=== PATIENT | female | born 1970 | race Caucasian/White ===

== ENCOUNTER 2016-09-26 19:10 | Emergency (ER) | payer OTHER | END 2016-09-26 21:29 | disposition left against medical advice (07) | LOC: UCCORT 19:10 | DX: H92.09 Otalgia, unspecified ear (principal); Z53.21 Procedure and treatment not carried out due to patient leaving prior to being seen by health care provider ==

== ENCOUNTER 2016-10-27 11:53 | Emergency (ER) | payer BC, OTHER ==
[2016-10-27 12:05] VITALS: BP 117/65
[2016-10-27] MEDS ORDERED: Levalbuterol 1.25MG/0.5ML NEB INH ONE (12:32)
--- NOTE | 2016-10-27 12:33 | UC ---
Respiratory Complaint HPI - HPI Summary HPI Summary: pat is asthmatic, having difficulty breathing last time she nebulized albuterol she went into SVT. is here to get a nebulization treatment while being monitored. - History of Current Complaint Chief Complaint: UCGeneralIllness Stated Complaint: ASTHMA-COUGH Time Seen by Provider: 10/27/16 12:26 Hx Obtained From: Patient Hx Last Menstrual Period: 10/23/16 ?: No Onset/Duration: Sudden Onset, Lasting Days Timing: Constant Severity Initially: Mild Severity Currently: Mild Pain Intensity: 3 Character: Cough: Nonproductive Aggravating Factors: Exertion, Deep Breaths, Recumbent Position Alleviating Factors: Bronchodilator Associated Signs And Symptoms: Positive: Negative - Risk Factors Pulmonary Embolism Risk Factors: Negative - Allergies/Home Medications Allergies/Adverse Reactions: Allergies Allergy/AdvReac Type Severity Reaction Status Date / Time Latex Allergy Burning Verified 05/27/16 10:57 Sensation Home Medications: Home Medications Citalopram TAB* [CeleXA TAB*] 20 mg PO DAILY 10/27/16 [History Confirmed ] PMH/Surg Hx/FS Hx/Imm Hx Previously Healthy: Yes Cardiovascular History Of: Reports: Cardiac Disorders - SVT in 08/2016 Respiratory History Of: Reports: Asthma - Surgical History Surgical History: Yes Surgery Procedure, Year, and Place: Tubal Ligation, 1995, [place] - Tonsillectomy, - Family History Known Family History: Positive: Cardiac Disease, Respiratory Disease - Social History Alcohol Use: None Substance Use Type: None Smoking Status (MU): Smoker, Current Status Unknown Type: Cigarettes Amount Used/How Often: 1/2-1 PPD Length of Time of Smoking/Using Tobacco: 32 Years Have You Smoked in the Last Year: Yes When Did the Patient Quit Smoking/Using Tobacco: February 2014 Household Exposure Type: Cigarettes - Immunization History Most Recent Influenza Vaccination: no Review of Systems Constitutional: Negative Skin: Negative Eyes: Negative ENT: Negative Respiratory: Shortness Of Breath, Cough Cardiovascular: Negative Gastrointestinal: Negative Genitourinary: Negative Motor: Negative Neurovascular: Negative Musculoskeletal: Negative Neurological: Negative Psychological: Negative All Other Systems Reviewed And Are Negative: Yes Physical Exam Triage Information Reviewed: Yes Appearance: Well-Appearing, Well-Nourished, Ill-Appearing Vital Signs: Initial Vital Signs Temp 97.6 F 10/27/16 11:56 Pulse 90 10/27/16 11:56 Resp 16 10/27/16 11:56 BP 117/65 10/27/16 11:56 Pulse Ox 100 10/27/16 11:56 Vital Signs Reviewed: Yes Eye Exam: Normal Eyes: Positive: Conjunctiva Clear ENT Exam: Normal ENT: Positive: Normal ENT inspection, Hearing grossly normal, Pharynx normal, TMs normal Dental Exam: Normal Neck exam: Normal Neck: Positive: Supple, Nontender, No Lymphadenopathy Respiratory Exam: Normal Respiratory: Positive: Chest non-tender, Normal breath sounds, No respiratory distress, Rhonchi, Wheezing, Inspiration Cardiovascular Exam: Normal Cardiovascular: Positive: RRR, No Murmur, Pulses Normal Abdominal Exam: Normal Abdomen Description: Positive: Nontender, No Organomegaly, Soft Bowel Sounds: Positive: Present Musculoskeletal Exam: Normal Musculoskeletal: Positive: Strength Intact, ROM Intact, No Edema Neurological Exam: Normal Neurological: Positive: Alert, Muscle Tone Normal Psychological Exam: Normal Skin Exam: Normal UC Diagnostic Evaluation - Laboratory O2 Sat by Pulse Oximetry: 100 Respiratory Course/Dx - Course Course Of Treatment: hx obtained, exam performed, nebulatiztion treament given with Xopenex, good results. prednisone prescribed. - Differential Dx/Diagnosis Differential Diagnosis/HQI/PQRI: Asthma, Bronchitis, Laryngitis Provider Diagnoses: asthma exacerbation. wheezing Discharge - Discharge Plan Condition: Stable Disposition: HOME Prescriptions: predniSONE TAB* [Deltasone TAB*] 40 mg PO DAILY #10 tab Patient Education Materials: Asthma (ED) Additional Instructions: continue with your current medications, talk to your PCP about the albuterol, there are alternative with less Cardiac effect, such as Xopenex. Take the prednisone daily for 5 days.
[2016-10-27] MEDS ORDERED: Levalbuterol 0.63MG/3ML NEB ONE (12:48)
[2016-10-27] MEDS ORDERED: Levalbuterol 0.63MG/3ML NEB INH ONE (12:49)
== END 2016-10-27 13:24 | disposition home or self-care (01) ==
LOC: UCCORT 11:53
DX: J45.901 Unspecified asthma with (acute) exacerbation (principal); I47.1 Supraventricular tachycardia; Z87.891 Personal history of nicotine dependence; Z77.22 Contact with and (suspected) exposure to environmental tobacco smoke (acute) (chronic); Z91.040 Latex allergy status
CPT/HCPCS: 99212; A9270-GY; G0463

== ENCOUNTER 2016-12-21 20:19 | Emergency (ER) | payer BC ==
[2016-12-21 20:30] VITALS: BP 116/63
--- NOTE | 2016-12-21 20:43 | UC ---
FLU HPI - HPI Summary HPI Summary: 3 day history of sinus pain, malaise and increasing cough. No fever. Smoker with hx of asthma, takes symbicort. Not using albuterol at present as she avoids it. Feels some shortness of breath. Exposed to flu 2 to 3 days ago and is concerned about infection. Has been on prednisone for the past month due to a flare up of lupus. - History of Current Complaint Chief Complaint: UCRespiratory Stated Complaint: SINUS/ REQUEST FLU TEST Time Seen by Provider: 12/21/16 20:30 Hx Obtained From: Patient Hx Last Menstrual Period: 12/15/16 ?: No Onset/Duration: Gradual Onset, Lasting Days - 3 Severity Currently: Mild Severity Initially: Moderate Associated Signs & Symptoms: Positive: Myalgia, Nasal Congestion - Risk Factors Influenza Risk Factors: Chronic Medical or Immunosuppresive Condition - Allergy/Home Medications Allergies/Adverse Reactions: Allergies Allergy/AdvReac Type Severity Reaction Status Date / Time Latex Allergy Burning Verified 12/21/16 20:30 Sensation Home Medications: Home Medications predniSONE TAB* [Deltasone TAB*] 5 mg PO DAILY 12/21/16 [History Confirmed 12/21] PMH/Surg Hx/FS Hx/Imm Hx - Additional Past Medical History Additional PMH: lupus with recent flare up. 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 Lives: With Family Alcohol Use: Occasionally Substance Use Type: None Smoking Status (MU): Heavy Every Day Tobacco Smoker Type: Cigarettes Amount Used/How Often: 1/2-1 PPD Length of Time of Smoking/Using Tobacco: 32 Years Have You Smoked in the Last Year: Yes When Did the Patient Quit Smoking/Using Tobacco: February 2014 Household Exposure Type: Cigarettes - Immunization History Most Recent Influenza Vaccination: no Review of Systems Constitutional: Fatigue Skin: Negative Eyes: Negative ENT: Sore Throat Respiratory: Shortness Of Breath, Cough Cardiovascular: Palpitations - has had some heart palpitations today. Gastrointestinal: Negative Genitourinary: Negative Motor: Negative Neurovascular: Negative Musculoskeletal: Arthralgia - knees Neurological: Weakness Psychological: Negative All Other Systems Reviewed And Are Negative: Yes Physical Exam Triage Information Reviewed: Yes Appearance: Ill-Appearing - mildly unwell Vital Signs: Initial Vital Signs Temp 98.6 F 12/21/16 20:26 Pulse 86 12/21/16 20:26 Resp 16 12/21/16 20:26 BP 116/63 12/21/16 20:26 Pulse Ox 100 12/21/16 20:26 Vital Signs Reviewed: Yes Eyes: Positive: Conjunctiva Clear ENT: Positive: Pharyngeal erythema, TMs normal Neck exam: Normal Neck: Positive: Supple, Nontender, No Lymphadenopathy Respiratory: Positive: No respiratory distress, Wheezing - throughout upper lung [place]. Cardiovascular: Positive: RRR, No Murmur Abdomen Description: Positive: Nontender, No Organomegaly Musculoskeletal Exam: Normal Neurological: Positive: Alert, Muscle Tone Normal Psychological Exam: Normal Skin Exam: Normal Diagnostics - Laboratory Diagnostic Studies Completed/Ordered: rapid flu negative. Flu Course/Dx - Course Course Of Treatment: augmentin for acute sinusitis. - Differential Dx/Diagnosis Differential Diagnosis/HQI/PQRI: Influenza, Upper Respiratory Infection, Other - sinusitis Provider Diagnoses: acute sinusitis; asthma exacerbation Discharge - Discharge Plan Condition: Stable Disposition: HOME Prescriptions: Albuterol HFA INHALER* [Ventolin HFA Inhaler*] 2 puff INH Q6H PRN #1 mdi PRN Reason: Wheezing Amoxicillin/Clavulanate TAB* [Augmentin TAB 875*] 875 mg PO BID #20 tab Patient Education Materials: Sinusitis (ED), Asthma (ED) Additional Instructions: Continue use of symbicort and use albuterol as needed. Begin augmentin for treatment of sinusitis. Flu test was negative, but if you develop fever and more typical flu like symptoms, you can come for a reassessment.
[2016-12-21] MEDS ORDERED: Amoxicillin/Clavulanate TAB* 875 MG PO ONE (20:57)
== END 2016-12-21 21:10 | disposition home or self-care (01) ==
LOC: UCCORT 20:19
DX: J01.90 Acute sinusitis, unspecified (principal); J45.901 Unspecified asthma with (acute) exacerbation; Z87.891 Personal history of nicotine dependence
CPT/HCPCS: 87502; 99212; A9270-GY; G0463

== ENCOUNTER 2017-08-09 14:05 | Emergency (ER) | payer BC ==
[2017-08-09 14:14] VITALS: BP 113/68
[2017-08-09] MEDS ORDERED: Albuterol/Ipratropium NEB.SOL* Albuterol 2.5 MG/Ipratropium 0.5 MG 3 ML INH ONE (14:25)
--- NOTE | 2017-08-09 14:25 | UC ---
Throat Pain/Nasal Kyler HPI - HPI Summary HPI Summary: uri and sinus complaints with continued chest congestion/cough---is 7 days with out smoking has been on antibiotics for 3 days - History of Current Complaint Chief Complaint: UCGeneralIllness Stated Complaint: FLU SYMPTOMS Time Seen by Provider: 08/09/17 14:09 Hx Obtained From: Patient Hx Last Menstrual Period: 08/07/17 ?: No Onset/Duration: Sudden Onset, Lasting Days - 6, Still Present Severity: Mild Pain Intensity: 3 Pain Scale Used: 0-10 Numeric Cough: Nonproductive Associated Signs & Symptoms: Positive: Negative Related History: Smoking - Allergies/Home Medications Allergies/Adverse Reactions: Allergies Allergy/AdvReac Type Severity Reaction Status Date / Time Latex Allergy Burning Verified 08/09/17 14:14 Sensation Home Medications: Home Medications Methotrexate TAB* 2.5 mg PO Q7D 08/09/17 [History Confirmed 08/09/17] Spiriva Inhaler DEVICE* [Tiotropium Inhaler DEVICE*] 2 inh BID 08/09/17 [ History Confirmed 08/09/17] PMH/Surg Hx/FS Hx/Imm Hx Previously Healthy: No - Lupus Respiratory History: COPD - Surgical History Surgical History: Yes Surgery Procedure, Year, and Place: Tubal Ligation, 1995, [place] - Tonsillectomy, s - Family History Known Family History: Positive: Cardiac Disease, Respiratory Disease - Social History Occupation: Employed Full-time Lives: With Family Alcohol Use: Occasionally Substance Use Type: None Smoking Status (MU): Heavy Every Day Tobacco Smoker Type: Cigarettes Amount Used/How Often: 1/2-1 PPD Length of Time of Smoking/Using Tobacco: 32 Years Have You Smoked in the Last Year: Yes When Did the Patient Quit Smoking/Using Tobacco: 07/2017 Household Exposure Type: Cigarettes - Immunization History Most Recent Influenza Vaccination: no Review of Systems Constitutional: Chills, Fatigue Skin: Negative Eyes: Negative ENT: Nasal Discharge, Sinus Congestion Respiratory: Cough Cardiovascular: Negative Gastrointestinal: Negative Genitourinary: Negative Motor: Negative Neurovascular: Negative Musculoskeletal: Negative Neurological: Negative Psychological: Negative Is Patient Immunocompromised?: No All Other Systems Reviewed And Are Negative: Yes Physical Exam Triage Information Reviewed: Yes Appearance: Well-Appearing, No Pain Distress, Well-Nourished Vital Signs: Initial Vital Signs Temp 97.9 F 08/09/17 14:08 Pulse 84 08/09/17 14:08 Resp 16 08/09/17 14:08 BP 113/68 08/09/17 14:08 Pulse Ox 98 08/09/17 14:08 Vital Signs Reviewed: Yes Eye Exam: Normal Eyes: Positive: Conjunctiva Clear ENT Exam: Normal ENT: Positive: Normal ENT inspection, Hearing grossly normal, Pharynx normal, Nasal congestion, TMs normal, Sinus tenderness, Uvula midline. Negative: Tonsillar swelling, Tonsillar exudate, Trismus, Muffled voice Dental Exam: Normal Neck exam: Normal Neck: Positive: Supple, Nontender, No Lymphadenopathy Respiratory Exam: Normal Respiratory: Positive: Chest non-tender, Lungs clear, Normal breath sounds, No respiratory distress, No accessory muscle use Cardiovascular Exam: Normal Cardiovascular: Positive: RRR, No Murmur, Pulses Normal, Brisk Capillary Refill Musculoskeletal Exam: Normal Musculoskeletal: Positive: Strength Intact, ROM Intact, No Edema Neurological Exam: Normal Neurological: Positive: Alert, Muscle Tone Normal Psychological Exam: Normal Skin Exam: Normal Diagnostics - Radiology No standard instances Xray Interpretation: No Acute Changes Radiology Interpretation Completed By: ED Physician, Radiologist Throat Pain/Nasal Course/Dx - Course Assessment/Plan: add mucinex D, rest increase fluids follow with pcp prn - Differential Dx/Diagnosis Provider Diagnoses: URI Discharge - Discharge Plan Condition: Stable Disposition: HOME Prescriptions: Fluticasone NASAL SPRAY 50MCG* [Flonase NASAL SPRAY 50MCG*] 2 spray BOTH NARES DAILY #1 btl Patient Education Materials: Decongestant/Expectorant (By mouth), Sinusitis (ED ) Forms: *Work Release Referrals: Luz Maria Giles PA [Physician Office Clerk] - 5 Days
--- NOTE | 2017-08-09 14:52 | RAD ---
INDICATION: Persistent cough. Chest discomfort COMPARISON: Chest x-ray November 25, 2014 TECHNIQUE: PA and lateral dual-energy views were obtained. FINDINGS: Bones/Soft Tissues: There are no acute bony findings. Cardiomediastinal: The cardiomediastinal silhouette is normal. Lungs: There are no infiltrates. Pleura: There are no pleural effusions. Other: None IMPRESSION: NO ACTIVE DISEASE.
== END 2017-08-09 15:12 | disposition home or self-care (01) ==
LOC: UCCORT 14:05
DX: J06.9 Acute upper respiratory infection, unspecified (principal); F17.210 Nicotine dependence, cigarettes, uncomplicated
CPT/HCPCS: 71020; 99212; A9270-GY; G0463

== ENCOUNTER 2017-09-11 12:29 | Emergency (ER) | payer BC ==
[2017-09-11 13:31] VITALS: BP 106/74
--- NOTE | 2017-09-11 13:55 | UC ---
Lower Extremity/Ankle HPI - HPI Summary HPI Summary: left calf pain x 1 day + injury , felt a pop as she was walking ? swelling , no erythema, no fever, no chills, no chest pain , no sob + smoking hx, no ocp , no recent long travel - History of Current Complaint Chief Complaint: UCLowerExtremity Stated Complaint: LFT LEG PAIN/INJURY Time Seen by Provider: 09/11/17 13:39 Hx Obtained From: Patient Hx Last Menstrual Period: 08/07/17 ?: No Onset/Duration: Sudden Onset, Lasting Days - 1, Still Present Severity Initially: Moderate Severity Currently: Moderate Aggravating Factor(s): Standing, Ambulation Alleviating Factor(s): Rest Able to Bear Weight: Yes - Allergies/Home Medications Allergies/Adverse Reactions: Allergies Allergy/AdvReac Type Severity Reaction Status Date / Time Latex Allergy Burning Verified 09/11/17 13:31 Sensation Home Medications: Home Medications Atorvastatin* [Lipitor*] 10 mg PO 1700 09/11/17 [History Confirmed 09/11/17] Folic Acid TAB* [Folvite TAB*] 1 mg PO DAILY 09/11/17 [History Confirmed ] PMH/Surg Hx/FS Hx/Imm Hx - Additional Past Medical History Additional PMH: lupus Previously Healthy: Yes Cardiovascular History: Cardiac Disease Respiratory History: COPD - Surgical History Surgical History: Yes Surgery Procedure, Year, and Place: Tubal Ligation, 1995, [place] - Tonsillectomy, s - Family History Known Family History: Positive: Cardiac Disease, Respiratory Disease - Social History Alcohol Use: Occasionally Substance Use Type: None Smoking Status (MU): Heavy Every Day Tobacco Smoker Type: Cigarettes Amount Used/How Often: 1/2-1 PPD Length of Time of Smoking/Using Tobacco: 32 Years Have You Smoked in the Last Year: Yes When Did the Patient Quit Smoking/Using Tobacco: 07/2017 Household Exposure Type: Cigarettes - Immunization History Most Recent Influenza Vaccination: no Review of Systems Constitutional: Negative Skin: Negative Eyes: Negative ENT: Negative Respiratory: Negative Cardiovascular: Negative Gastrointestinal: Negative Genitourinary: Negative Is Patient Immunocompromised?: No All Other Systems Reviewed And Are Negative: Yes Physical Exam Triage Information Reviewed: Yes Appearance: Well-Appearing, No Pain Distress, Well-Nourished Vital Signs: Initial Vital Signs Temp 98.6 F 09/11/17 13:24 Pulse 85 09/11/17 13:24 Resp 16 09/11/17 13:24 BP 106/74 09/11/17 13:24 Vital Signs Reviewed: Yes Eyes: Positive: Conjunctiva Clear ENT: Positive: Normal ENT inspection, Hearing grossly normal, Pharynx normal Neck exam: Normal Neck: Positive: Supple, Nontender, No Lymphadenopathy Respiratory: Positive: Chest non-tender, Lungs clear, Normal breath sounds Cardiovascular: Positive: RRR, No Murmur, Pulses Normal Musculoskeletal: Positive: Other: - left lower leg : + calf tenderness, no swellig, no erythema Lower Extremity Course/Dx - Course Course Of Treatment: will check Ddimer to r/o dvt - Differential Dx/Diagnosis Differential Diagnosis/HQI/PQRI: DVT Provider Diagnoses: left calf pain Discharge - Discharge Plan Condition: Stable Disposition: HOME Patient Education Materials: Leg Pain (ED) Forms: *Work Release Referrals: Sheila Garcia MD [Primary Care Provider] - 5 Days Additional Instructions: left calf pain / most likely muscle strain cont. with rest, ice, elevation , take ibuprofen as needed for pain will check DDimer to R/O DVT please call the office later tonight or tomorrow morning for the results if elevated DDimer please go to ED for ultrasound of your leg
== END 2017-09-11 14:21 | disposition home or self-care (01) ==
LOC: UCCORT 12:29
DX: M79.662 Pain in left lower leg (principal); J44.9 Chronic obstructive pulmonary disease, unspecified; I25.10 Atherosclerotic heart disease of native coronary artery without angina pectoris; L93.0 Discoid lupus erythematosus; F17.200 Nicotine dependence, unspecified, uncomplicated
CPT/HCPCS: 99211; G0463

== ENCOUNTER 2017-11-05 10:46 | Emergency (ER) | payer BC ==
--- NOTE | 2017-11-05 10:54 | UC ---
Eye Complaint HPI - HPI Summary HPI Summary: 46 y/o female presents to the urgent care c/o b/l eyes redness and watery w/ yellowish rusting discharge when she woke up this morning. PT reports mild itchiness and she was exposed to someone w/ pink eye at work about 2 days ago. Pt denies fever, URI, CORTEZ, photophobia, dizziness, SOB, chest pain, abdominal pain, N/V/D. - History of Current Complaint Stated Complaint: BILATERAL EYE COMPLAINT Time Seen by Provider: 11/05/17 10:52 Hx Obtained From: Patient Hx Last Menstrual Period: 10/18/2017 ?: No Onset/Duration: Gradual Onset, Lasting Days - 1 day, Still Present, Worse Since - this morning Timing: Constant Severity Initially: Mild Severity Currently: Mild Pain Intensity: 0 Pain Scale Used: 0-10 Numeric Location of Injury: Conjunctiva - B/L Character: Foreign Body Sensation Aggravating Factor(s): Blinking Alleviating Factor(s): Nothing Associated Signs And Symptoms: Negative: Drainage (Purulent) - mild upon awaking - Risk Factors Penetrating Injury Risk Factor: Negative Acute Glaucoma Risk Factors: Negative Optic Artery Occlusion Risk Factors: Negative - Allergies/Home Medications Allergies/Adverse Reactions: Allergies Allergy/AdvReac Type Severity Reaction Status Date / Time latex Allergy Intermediate burning Verified 11/05/17 10:58 sensation Home Medications: Home Medications Budesonide/Formote 160/4.5(NF) [Symbicort 160/4.5 (NF)] 1 puff INH BID 11/05/17 [History Confirmed 11/05/17] PMH/Surg Hx/FS Hx/Imm Hx Endocrine History: Dyslipidemia Other Endocrine History: Anemia Respiratory History: Asthma - Surgical History Surgical History: Yes Surgery Procedure, Year, and Place: Tubal Ligation, 1995, [place] - Tonsillectomy, 1969's - Family History Known Family History: Positive: Cardiac Disease, Respiratory Disease - Social History Alcohol Use: Occasionally Substance Use Type: None Smoking Status (MU): Heavy Every Day Tobacco Smoker Type: Cigarettes Amount Used/How Often: 1/2-1 PPD Length of Time of Smoking/Using Tobacco: 32 Years Have You Smoked in the Last Year: Yes When Did the Patient Quit Smoking/Using Tobacco: 07/2017 Household Exposure Type: Cigarettes - Immunization History Most Recent Influenza Vaccination: no Review of Systems Constitutional: Negative Skin: Negative Eyes: Eye Redness - B/L eye w. mild yellowish crusting ENT: Negative Respiratory: Negative Cardiovascular: Negative Gastrointestinal: Negative Genitourinary: Negative Motor: Negative Neurovascular: Negative Musculoskeletal: Negative Neurological: Negative Psychological: Negative Is Patient Immunocompromised?: No All Other Systems Reviewed And Are Negative: Yes Physical Exam - Summary Physical Exam Summary: Vital Signs Reviewed: Yes General: Well appearing, well nourished female in no apparent pain distress Eyes: Positive: B/L Conjunctiva mildly Inflamed - Visual acuity: WNL,Visual [place]: full to confrontation.No periorbital soft tissue swelling. PERRLA, EOMI intact w/out limitation or complaint of pain. eyelashes w/ mild yellowish crusting . mild tearing and yellowish drainage observed. No ciliary flush. No chemosis, No photophobia. Normal fundoscopic exam; no proptosis, exophthalmos, nystagmus. ENT: Positive: Normal ENT inspection, Hearing grossly normal, Pharynx normal, Nasal congestion, Nasal drainage - clear, TMs normal - B/L external ear canal clear , TM's WNL. Negative: Tonsillar swelling, Tonsillar exudate Neck: Positive: Supple, Nontender, No Lymphadenopathy Respiratory: Positive: Chest nontender, Lungs clear, Normal breath sounds, No respiratory distress Cardiovascular: Positive: RRR, No Murmur, Pulses Normal, Brisk Capillary Refill Abdomen Description: Positive: Nontender, No Organomegaly, Soft. Negative: CVA Tenderness (R), CVA Tenderness (L) Bowel Sounds: Positive: Present Musculoskeletal: Positive: Strength Intact, ROM Intact, No Edema Neurological Exam: Normal Psychological Exam: Normal Skin Exam: Normal Triage Information Reviewed: Yes Eye Complaint Course/Dx - Course Course Of Treatment: 46 y/o female presents to the urgent care c/o b/l eyes redness and watery w/ yellowish rusting discharge when she woke up this morning. PT reports mild itchiness and she was exposed to someone w/ pink eye at work about 2 days ago. Pt denies fever, URI, CORTEZ, photophobia, dizziness, SOB , chest pain, abdominal pain, N/V/D. Hx obtained. Pt w/ acute B/L bacterial conjunctivitis on examination. Pt Rx Erythromycin ophthalmic ointment for her bacterial conjunctivitis. Pt instructed how to apply medication and if symptoms do not improve, advised f/u with PCP or Opthalmologist for further evaluation and treatment. Pt understood and agreed. - Differential Dx/Diagnosis Differential Diagnosis/HQI/PQRI: Conjunctivitis, Periorbital Cellulitis, Other Provider Diagnoses: 1- B/L acute bacterial conjunctivitis Discharge - Discharge Plan Condition: Stable Disposition: HOME Prescriptions: Erythromycin OPTH OINT* [Erythromycin 0.5% OPTH OINT*] 1 applic BOTH EYES TID # 1 tube Patient Education Materials: Conjunctivitis (ED) Forms: *Work Release Referrals: Yolanda Ríos MD [Medical Doctor] - If Needed Sheila Garcia MD [Primary Care Provider] - If Needed Additional Instructions: 1-Please apply ophthalmic ointment as instructed and finish the full course of treatment to avoid recurrent infection. Encourage hand washing. 2-If you do not improve or if symptoms worsen please f/u with soda maker DR Ríos for further evaluation and treatment
[2017-11-05 10:57] VITALS: BP 115/70
== END 2017-11-05 11:33 | disposition home or self-care (01) ==
LOC: UCCORT 10:46
DX: H10.33 Unspecified acute conjunctivitis, bilateral (principal); F17.210 Nicotine dependence, cigarettes, uncomplicated
CPT/HCPCS: 99212; G0463

== ENCOUNTER 2017-11-23 12:20 | Emergency (ER) | payer BC ==
--- NOTE | 2017-11-23 12:31 | UC ---
FLU HPI - HPI Summary HPI Summary: Pt presents with sinus pain/pressure/congestion, fatigue, body aches, and productive cough for the last 3 days. Yesterday her symptoms significantly worsened. She has not taken anything OTC for her symptoms. Has felt feverish, but has not taken her temperature. Has a hx of Lupus, lung nodules and granulomas. Denies SOB, chest pain, abdominal pain, n/v/d/c. She is still smoking daily - History of Current Complaint Hx Obtained From: Patient Hx Last Menstrual Period: 10/18/2017 Onset/Duration: Gradual Onset Severity Currently: Mild Severity Initially: Moderate Pain Intensity: 6 Pain Scale Used: 0-10 Numeric <Chuckie Peres - Last Filed: 11/23/17 13:17> <Lashaun Chavez - Last Filed: 11/23/17 13:33> - History of Current Complaint Stated Complaint: COUGH, SORE THROAT, HEADACHE Time Seen by Provider: 11/23/17 12:31 - Allergy/Home Medications Allergies/Adverse Reactions: Allergies Allergy/AdvReac Type Severity Reaction Status Date / Time latex Allergy Intermediate burning Verified 11/23/17 12:46 sensation Home Medications: Home Medications Dm/Pseudoephed/Acetaminoph/Cpm [Negrita-[place] Plus-D Sinus] 2 cap PO DAILY PRN [History Confirmed 11/23/17] guaiFENesin ER TAB [Mucinex*] 600 mg PO Q4H PRN 11/23/17 [History Confirmed 09/11] PMH/Surg Hx/FS Hx/Imm Hx - Additional Past Medical History Additional PMH: Lupus Lung nodules Lung calcified granulomas - Surgical History Surgical History: Yes Surgery Procedure, Year, and Place: Tubal Ligation, 1995, [place] - Tonsillectomy, - Family History Known Family History: Positive: Cardiac Disease, Respiratory Disease - Social History Occupation: Employed Full-time Lives: With Family Alcohol Use: Occasionally Substance Use Type: None Smoking Status (MU): Heavy Every Day Tobacco Smoker Type: Cigarettes Amount Used/How Often: 1/2-1 PPD Length of Time of Smoking/Using Tobacco: 32 Years Have You Smoked in the Last Year: Yes When Did the Patient Quit Smoking/Using Tobacco: 07/2017 Household Exposure Type: Cigarettes - Immunization History Most Recent Influenza Vaccination: no <Chuckie Peres - Last Filed: 11/23/17 13:17> Review of Systems Constitutional: Fatigue, Other - Body aches Skin: Negative Eyes: Negative ENT: Sore Throat, Nasal Discharge, Sinus Congestion, Sinus Pain/Tenderness Respiratory: Cough Cardiovascular: Negative Gastrointestinal: Negative Neurovascular: Negative Musculoskeletal: Negative Neurological: Headache Psychological: Negative All Other Systems Reviewed And Are Negative: Yes <JaChuckie - Last Filed: 11/23/17 13:17> Physical Exam - Summary Physical Exam Summary: GENERAL: Mildly ill appearing. No pain distress. SKIN: No rashes, sores, ulcers, masses, lesions. HEENT: Head: AT/NC Eyes: Conjunctiva clear without inflammation or discharge. Ears: Hearing grossly normal. TMs intact, no bulging, erythema, or edema. Nose: Nasal mucosa pink and moist. TTP maxillary and frontal sinus. Throat: Posterior oropharynx without exudates, erythema, or tonsillar enlargement. Uvula midline. NECK: Supple. Nontender. No lymphadenopathy. CHEST: Moderate wheezing throughout. No r/r. No accessory muscle use. Breathing comfortably and in no distress. CV: RRR. Without m/r/g. Pulses intact. Brisk cap refill. NEURO: Alert. CN II-XII grossly intact. PSYCH: Age appropriate behavior. Triage Information Reviewed: Yes <JaChuckie - Last Filed: 11/23/17 13:17> Vital Signs: Initial Vital Signs Temp 98.5 F 11/23/17 12:58 Pulse 86 11/23/17 12:58 Resp 20 11/23/17 12:58 BP 117/61 11/23/17 12:58 Pulse Ox 96 11/23/17 12:58 <Lashaun Chavez - Last Filed: 11/23/17 13:33> Flu Course/Dx - Course Course Of Treatment: She has a nebulizer with Duoneb at home, but says she hasn' t used it in over a year because the last time she used it - it caused her to have SVT and require hospitalization. Will hold off on duoneb today due to this. CXR: IMPRESSION: NO ACTIVE CARDIOPULMONARY DISEASE. EVIDENCE OF EXPOSURE TO GRANULOMATOUS DISEASE. Flu negative. Given her history, will rx for zpak and prednisone. Have her f/u with PCP if symptoms worsen or persist - Differential Dx/Diagnosis Provider Diagnoses: Bronchitis. Lupus <Chuckie Peres - Last Filed: 11/23/17 13:17> Discharge - Sign-Out/Discharge Documenting (check all that apply): Discharge - Billing Disposition and Condition Condition: STABLE Disposition: HOME <Chuckie Peres - Last Filed: 11/23/17 13:17> - Billing Disposition and Condition Condition: STABLE Disposition: HOME <Lashaun Chavez - Last Filed: 11/23/17 13:33> - Discharge Plan Condition: Stable Disposition: HOME Prescriptions: Azithromycin TAB* [Zithromax TAB (Z-ROMI) 250 mg #6 tabs] 2 tab PO .TODAY, THEN 1 DAILY #1 romi predniSONE TAB* [Deltasone TAB*] 50 mg PO DAILY #5 tab Patient Education Materials: Acute Bronchitis (ED) Referrals: Sheila Garcia MD [Primary Care Provider] - Additional Instructions: If you develop a fever, shortness of breath, chest pain, new or worsening symptoms - please call your PCP or go to the ED. Attestation Statement User Type: Provider - I was available for consult. This patient was seen by the TA. The patient was not presented to, seen by, or examined by me. -Key <Lashaun Chavez - Last Filed: 11/23/17 13:33>
--- NOTE | 2017-11-23 12:57 | RAD ---
HISTORY: Cough COMPARISONS: August 09, 2017 VIEWS: 4: Frontal dual-energy and lateral views of the chest. FINDINGS: CARDIOMEDIASTINAL SILHOUETTE: The cardiomediastinal silhouette is normal. SHON: The shon are normal. PLEURA: The costophrenic angles are sharp. No pleural abnormalities are noted. LUNG PARENCHYMA: Calcified granulomas are noted. ABDOMEN: The upper abdomen is clear. There is no subphrenic gas. BONES AND SOFT TISSUES: No bone or soft tissue abnormalities are noted. OTHER: None. IMPRESSION: NO ACTIVE CARDIOPULMONARY DISEASE. EVIDENCE OF EXPOSURE TO GRANULOMATOUS DISEASE.
[2017-11-23 13:07] VITALS: BP 117/61
== END 2017-11-23 13:35 | disposition home or self-care (01) ==
LOC: UCCORT 12:20
DX: M32.9 Systemic lupus erythematosus, unspecified (principal); F17.210 Nicotine dependence, cigarettes, uncomplicated; J40 Bronchitis, not specified as acute or chronic
CPT/HCPCS: 71046; 87502; 99212; G0463

== ENCOUNTER 2018-03-19 09:01 | Emergency (ER) | payer BC ==
[2018-03-19 09:56] VITALS: BP 115/69
--- NOTE | 2018-03-19 10:16 | UC ---
Complaint Female HPI - HPI Summary HPI Summary: Patient patient comes to urgent care today with 2 complaints.comes to urgent care today with 2 concerns 1. Intermittent low back pain for 2-3 months--seems to be worse in the morning No pain or burning with urination no fevers or chills. nothing seems to make it better. It does get worse with movement 2. anxiety after the overdose of her daughter in November. At her baseline she has untreated anxiety but not the episodes are worse. She feels like she has not resolved the grief with the and feels she does not have a lot of support. HAs not reached out to hospice, [facility], PCP or Mental Health Clinic - History Of Current Complaint Chief Complaint: UCGU Stated Complaint: KIDNEY PAIN Time Seen by Provider: 03/19/18 10:14 Hx Obtained From: Patient Hx Last Menstrual Period: 03/19/18 ?: No Onset/Duration: Gradual Onset, Lasting Weeks - 8-16 weeks Timing: Intermittent Pain Intensity: 3 Pain Scale Used: 0-10 Numeric Character: Not Applicable Aggravating Factor(s): Movement Alleviating Factor(s): Nothing Associated Signs And Symptoms: Positive: Back Pain - Allergies/Home Medications Allergies/Adverse Reactions: Allergies Allergy/AdvReac Type Severity Reaction Status Date / Time latex Allergy Intermediate burning Verified 03/19/18 09:47 sensation Home Medications: Home Medications Albuterol HFA INHALER* [Ventolin HFA Inhaler*] 1 - 2 puff INH Q4H PRN 03/19/18 [ History Confirmed 03/19/18] Esomeprazole(NF) [Nexium(NF)] 40 mg PO DAILY 03/19/18 [History Confirmed ] Ibuprofen TAB* [Advil TAB*] 600 - 800 mg PO Q8H PRN 03/19/18 [History Confirmed 03/19/18] Naproxen Sodium [Aleve] 220 mg PO Q12H PRN 03/19/18 [History Confirmed 03/19/18] PMH/Surg Hx/FS Hx/Imm Hx Previously Healthy: No - Lupus Respiratory History: COPD GI/ History: Gastroesophageal Reflux Psychological History: Anxiety - Surgical History Surgical History: Yes Surgery Procedure, Year, and Place: Tubal Ligation, 1995, [place] - Tonsillectomy, - Family History Known Family History: Positive: Cardiac Disease, Respiratory Disease - Social History Occupation: Employed Full-time Lives: Alone Alcohol Use: None Substance Use Type: None Smoking Status (MU): Light Every Day Tobacco Smoker Type: eCigarettes Amount Used/How Often: 4-5 eCigarettes Daily Length of Time of Smoking/Using Tobacco: 1/2 - 1 PPD x 32 Years Have You Smoked in the Last Year: Yes When Did the Patient Quit Smoking/Using Tobacco: 02/26/18 Household Exposure Type: Cigarettes - Immunization History Most Recent Influenza Vaccination: no Review of Systems Constitutional: Negative Skin: Negative Eyes: Negative ENT: Negative Respiratory: Negative Cardiovascular: Negative Gastrointestinal: Negative Genitourinary: Negative Motor: Negative Neurovascular: Negative Musculoskeletal: Arthralgia - low back pain Neurological: Negative Psychological: Anxious - at times but not now Is Patient Immunocompromised?: Yes - lupus on plaquanil All Other Systems Reviewed And Are Negative: Yes Physical Exam Triage Information Reviewed: Yes Appearance: Well-Appearing, No Pain Distress, Well-Nourished Vital Signs: Initial Vital Signs Temp 98.3 F 03/19/18 09:45 Pulse 88 03/19/18 09:45 Resp 16 03/19/18 09:45 BP 115/69 03/19/18 09:45 Pulse Ox 98 03/19/18 09:45 Vital Signs Reviewed: Yes Eye Exam: Normal Eyes: Positive: Conjunctiva Clear ENT Exam: Normal ENT: Positive: Normal ENT inspection, Hearing grossly normal. Negative: Trismus , Muffled voice, Hoarse voice Dental Exam: Normal Neck exam: Normal Neck: Positive: Supple, Nontender, No Lymphadenopathy Respiratory Exam: Normal Respiratory: Positive: Chest non-tender, Lungs clear, Normal breath sounds, No respiratory distress, No accessory muscle use Cardiovascular Exam: Normal Cardiovascular: Positive: RRR, No Murmur, Pulses Normal, Brisk Capillary Refill Abdominal Exam: Normal Abdomen Description: Positive: Nontender, No Organomegaly, Soft. Negative: CVA Tenderness (R), CVA Tenderness (L) Bowel Sounds: Positive: Present Musculoskeletal Exam: Normal Musculoskeletal: Positive: Strength Intact, ROM Intact, No Edema Neurological Exam: Normal Neurological: Positive: Alert, Muscle Tone Normal Psychological Exam: Normal Skin Exam: Normal Complaint Female Dx - Course Course Of Treatment: vistaril , grief support, follow with pcp (referrals made) back pain exercise and information - Differential Dx/Diagnosis Provider Diagnoses: extended grief, low back pain Discharge - Sign-Out/Discharge Documenting (check all that apply): Patient Departure - Discharge Plan Condition: Stable Disposition: HOME Prescriptions: hydrOXYzine HCL TAB* [Atarax 10 MG TAB*] 10 - 20 mg PO QID PRN #20 tab PRN Reason: anxiety Patient Education Materials: Grief and Loss (ED), Back Pain (ED), Lower Back Exercises (ED) Forms: *Work Release Referrals: [facility] [Outside] [facility] [Outside] [facility] [Outside] Violeta StrattonVioleta [Medical Doctor] - Additional Instructions: I am so sorry to hear about the of your daughter. This can be an extremely hard time from mom and not knowing how to manage your grief, fears and sadness and feeling like you have to be the strong one. Please take care of yourself sleep regular, eating healthy, meditation writing and reflection, follow up with hospice use your EAP benefits!!!! Please check with your employer regarding EAP (employee assistance program) for short-term assistance with the grief and loss counseling. - Billing Disposition and Condition Condition: STABLE Disposition: Home Attestation Statement User Type: Provider - I was available for consult. This patient was seen by the TA. The patient was not presented to, seen by, or examined by me. -Key
== END 2018-03-19 11:09 | disposition home or self-care (01) ==
LOC: UCCORT 09:01
DX: M54.5 Low back pain (principal); Z91.040 Latex allergy status; F41.9 Anxiety disorder, unspecified; J44.9 Chronic obstructive pulmonary disease, unspecified; K21.9 Gastro-esophageal reflux disease without esophagitis; F17.210 Nicotine dependence, cigarettes, uncomplicated; F43.29 Adjustment disorder with other symptoms
CPT/HCPCS: 81003; 84702; 99212; G0463

== ENCOUNTER 2018-06-06 10:32 | Emergency (ER) | payer BC ==
[2018-06-06 11:43] VITALS: BP 111/59
--- NOTE | 2018-06-06 12:13 | UC ---
Respiratory Complaint HPI - HPI Summary HPI Summary: 47 year old female with respiratory complaint. "Well, I've got some kind of infection in my lungs and my sinuses ... I just feel lousy." Congestion, productive cough, arthralgias, and general malaise for two days. Would like to avoid antibiotics if possible. Called into work today. Patient has history of lung disease but she is not sure if it is emphysema or asthma but she does take Symbicort daily and has felt an increase in her wheezing and as worried about asthma exacerbation. Otherwise she is feeling fine and in no respiratory distress [ End ] - History of Current Complaint Chief Complaint: UCRespiratory Stated Complaint: SINUS PRESSURE, COUGH Time Seen by Provider: 06/06/18 11:57 Hx Obtained From: Patient Hx Last Menstrual Period: 06/02/18 Onset/Duration: Sudden Onset Timing: Constant Pain Intensity: 6 Character: Cough: Nonproductive, Cough: Productive Associated Signs And Symptoms: Positive: Wheezing, URI, Nasal Congestion, Sinus Discomfort - Allergies/Home Medications Allergies/Adverse Reactions: Allergies Allergy/AdvReac Type Severity Reaction Status Date / Time latex Allergy Intermediate burning Verified 06/06/18 11:39 sensation PMH/Surg Hx/FS Hx/Imm Hx - Additional Past Medical History Additional PMH: Lupus Previously Healthy: Yes Respiratory History: COPD, Asthma, Bronchitis, Pneumonia Psychological History: Anxiety - Surgical History Surgical History: Yes Surgery Procedure, Year, and Place: Tubal Ligation, 1995, [place] - Tonsillectomy, - Family History Known Family History: Positive: Cardiac Disease, Respiratory Disease - Social History Alcohol Use: None Substance Use Type: None Smoking Status (MU): Light Every Day Tobacco Smoker Type: eCigarettes Amount Used/How Often: 4-5 eCigarettes Daily Length of Time of Smoking/Using Tobacco: 1/2 - 1 PPD x 32 Years Have You Smoked in the Last Year: Yes When Did the Patient Quit Smoking/Using Tobacco: 02/26/18 Household Exposure Type: Cigarettes - Immunization History Most Recent Influenza Vaccination: no Review of Systems Constitutional: Fatigue ENT: Nasal Discharge, Sinus Congestion, Sinus Pain/Tenderness Respiratory: Shortness Of Breath, Cough Is Patient Immunocompromised?: No All Other Systems Reviewed And Are Negative: Yes Physical Exam Triage Information Reviewed: Yes Appearance: Well-Appearing, No Pain Distress, Well-Nourished Vital Signs: Initial Vital Signs Temp 97.9 F 06/06/18 11:37 Pulse 76 06/06/18 11:37 Resp 18 06/06/18 11:37 BP 111/59 06/06/18 11:37 Pulse Ox 100 06/06/18 11:37 Vital Signs Reviewed: Yes Eye Exam: Normal Eyes: Positive: Conjunctiva Clear ENT Exam: Normal ENT: Positive: Normal ENT inspection, Hearing grossly normal, Nasal congestion, TMs normal Dental Exam: Normal Neck exam: Normal Respiratory Exam: Normal Cardiovascular Exam: Normal Musculoskeletal Exam: Normal Neurological Exam: Normal Skin Exam: Normal UC Diagnostic Evaluation - Laboratory O2 Sat by Pulse Oximetry: 100 Respiratory Course/Dx - Course Course Of Treatment: With her wheezing and coughing advised to start prednisone. Of note she stated she took 40 mg of prednisone yesterday and it did help in asking for more. She declined antibiotics at this time. I do believe it is a viral asthma exacerbation so that is appropriate. If any concerns for this becoming U is aware to return for further evaluation. Work note given for today. - Differential Dx/Diagnosis Differential Diagnosis/HQI/PQRI: Asthma, Bronchitis, Laryngitis, Lower Resp Infection Provider Diagnoses: Asthma exacerbation Discharge - Sign-Out/Discharge Documenting (check all that apply): Patient Departure All imaging exams completed and their final reports reviewed: No Studies - Discharge Plan Condition: Good Disposition: HOME Prescriptions: Benzonatate CAP* [Tessalon 100 MG CAP*] 100 mg PO TID PRN #20 cap PRN Reason: Cough predniSONE TAB* [Deltasone 20 MG TAB*] 40 mg PO DAILY 5 Days #10 tab Patient Education Materials: Reactive Airways Disease (ED) Forms: *Work Release Referrals: No Primary Care Phys,NOPCP [Primary Care Provider] - 4 Days - Billing Disposition and Condition Condition: GOOD Disposition: Home
== END 2018-06-06 12:35 | disposition home or self-care (01) ==
LOC: UCCORT 10:32
DX: J45.901 Unspecified asthma with (acute) exacerbation (principal); F17.210 Nicotine dependence, cigarettes, uncomplicated
CPT/HCPCS: 99212; G0463

== ENCOUNTER 2018-09-22 07:26 | Emergency (ER) | payer BC ==
--- OUTSIDE RECORDS SUMMARY | 2018-09-22 07:35 | XMS REPORT | Continuity of Care Document ---
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 Jamel Horton MD Primary Care Physician Unavailable Payers Type Date Identification Numbers Payment Provider Subscriber Policy Number: [id number] [place] [employer] [facility] Marbella Muse PayID: [id number] [address] [place] [address] Onset: 2017 Policy Number: [facility] Marbella Muse [id number] Fund Group Name: [address] [place] [address] PayID: [id number] [address] Advance Directives Description No Information Available Problems Date Description Provider Status Onset: 09/11/2016 Anxiety state Yusra Mishra, Active 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, 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 Onset: 09/11/2016 Paroxysmal supraventricular MishraYusra robison, Active tachycardia MSN, 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 Onset: 09/11/2016 Atherosclerotic heart disease of Yusra Mishra, 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 Right-handed ADL's/IADL's Independent with all ADL's Tobacco Use Start: Unknown current cigarette 1/2 pack daily x smoker 35 years ETOH Use Rarely consumes alcohol Recreational Drug Use Former Drug User Tobacco Use Start: Unknown End: Patient is a former 1 pack for 35 plus Unknown smoker years Tobacco Use Reviewed: 08/25/18 Patient is a current 1-2 cigs up to 1PPD smoker, smokes some days Smoking Status Reviewed: 09/08/18 Patient is a current 1-2 cigs up to 1PPD smoker, smokes some days Exercise Type/Frequency Exercises rarely Allergies, Adverse Reactions, Alerts Date Description Reaction Status Severity Comments 02/06/2017 Latex Active 09/11/2016 NKDA Inactive Medications Medication Date Status Form Strength Qnty SIG Indications Ordering Provider Symbicort Active Aerosol 80-4.5mcg/ 6.900g 2 puff J44.9 Narcisa Magallon Act m twice a MD Jason day Singulair Active Tablets 10mg 30tabs 1 by Narcisa Magallon mouth MD Jason every night. Bupropion HCL Active Tablets ER 150mg 60tabs 1 twice Z72.0 Sherita, ER (XL) 018 24HR daily. MD Jason Proair HFA Active Aerosol 108(90Base 17unit Inhale Kheti, 018 ) mcg/Act s Two MD Jason Puffs By Mouth Every 4 To 6 Hours as Needed Omeprazole Active Capsules DR 40mg 30caps take 1 K21.9 Gelaeti, 018 tablet MD Jason daily. Albuterol Active Nebulizer 0.63mg/3ML 75ml 1 vial Gelaeti, Sulfate 000 via neb MD Jason three times a day for cough/wh eezing. Plaquenil Active Tablets 200mg 1 by Unknown 000 mouth every day Symbicort Hx Aerosol 160-4.5mcg 10.200 2 puff J44.9 Gelaeti, 018 - /Act gm twice a MD Jason day. 019 Rinse mouth after use. Cartia XT Hx Caps ER 24HR 120mg 30caps 1 by I47.1 Mishra, 018 mouth Yusra every , day MSN, 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 I49.3 Hydroxyzine HCL 08/28/2017 Hx Tablets 25mg 30tabs 1-2 tabs F41.9 Radha, by mouth Sheila, three M.DSelvin times a day as needed anxiety Bupropion HCL ER 08/28/2017 Hx Tablets ER 150mg 30tabs take 1 F33.1 Radha , (XL) 24HR pill by rosi Sosa M.D. every daily Spiriva Respimat 07/31/2017 Hx Aerosol 2.5mcg 4gm take 2 J44.9 Kheti, /Act puffs once Jason, daily. Please load and teach inhaler. 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 or buttocks Venlafaxine HCL ER 02/06/2017 Hx Caps ER 24HR 37.5mg 30caps 1 by mouth F41.9 Radha, every day Michael Sosa Atorvastatin Calcium 02/06/2017 Hx Tablets 20mg 30tabs 1 by mouth Radha, every day Michael Sosa Symbicort - Hx Aerosol 160-4. Inhale Two Unknown 02/06/2017 5mcg/A Puffs By ct Mouth Twice A Day Alprazolam - Hx Tablets 0.25mg A/D prn [place] 02/06/2017 Luz Maria licona PA Citalopram - Hx Tablets 20mg 1 po daily Gall[place]an Hydrobromide 02/06/2017 Luz Maria licona PA Fluticasone Hx Suspension 50mcg/ [place] 2 Unknown Propionate Act Sprays In Each Nostril Once Daily Ibuprofen - Hx Tablets 200mg Take One Unknown 02/06/2017 Tablet By Mouth Every 6 Hours as Needed For Pain Albuterol Sulfate Hx Nebulizer (2.5mg Use 1 Vial Unknown /3ML) Via 0.083% Nebulizer Every 6 Hours as Needed For Cough Wheezing Hydroxychloroquine Hx Tablets 200mg 1 tab by Gustavo Sulfate mouth as Sly green MD Prednisone Hx Tablets 5mg Take One Unknown Tablet By Mouth Every Day Proair HFA Hx Aerosol 108(90 17gm inhale two Clune, Base) puffs by Maria De Jesus mcg/Ac mouth ratna, t every 4 to 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 6 hours as needed Symbicort - Hx Aerosol 80-4.5 13.8gm inhale two Clune, 01/28/2018 mcg/Ac puffs by Maria De Jesus t mouth ratna, twice a 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 day Plaquenil Hx Tablets 120mg 1 tab by Unknown mouth twice a day Ibuprofen 200 Hx Tablets 200mg 1-2 tabs Unknown as needed Methotrexate Hx Tablets 2.5mg 4 po Gustavo, marifer Heart MD Folic Acid Hx Tablets 1mg 1 po daily Sly Chen MD Prednisone Hx Tablets 5mg 1 po daily Sly Chen MD Ventolin HFA - Hx Aerosol 108(90 take 2 Unknown 06/08/2018 Base) puffs mcg/Ac every 6 t hours as needed for shortness of breath. Immunizations CPT Code Status Date Vaccine Lot # [id number] Given 08/28/2017 Influenza Virus Vaccine Quadrivalent Iiv4 [place] [id number] [id number] Given 02/06/2017 Tdap injection [id number] Vital Signs Date Vital Result Comment 09/08/2018 3:17pm BP Systolic Sitting Left Arm 114 mmHg BP Diastolic Sitting Left Arm 74 mmHg Heart Rate 81 /min Respiratory Rate 16 /min Height 63 inches 5'3" Weight 168.00 lb BMI (Body Mass Index) 29.8 kg/m2 BSA (Body Surface Area) 1.80 m2 [place] body weight in kilograms 52 kg O2 Saturation Level with Exercise 96 % 07/31/2018 11:24am BP Systolic Sitting Left Arm 126 mmHg BP Diastolic Sitting Left Arm 78 mmHg Heart Rate 80 /min Respiratory Rate 18 /min Height 63 inches 5'3" Weight 168.00 lb BMI (Body Mass Index) 29.8 kg/m2 BSA (Body Surface Area) 1.80 m2 [place] body weight in kilograms 52 kg O2 % BldC Oximetry 96 % Ora 01/28/2018 11:34am BP Systolic Sitting Left Arm 110 mmHg BP Diastolic Sitting Left Arm 75 mmHg Body Temperature 97.7 F Heart Rate 85 /min Respiratory Rate 18 /min Height 63 inches 5'3" Weight 181.00 lb BMI (Body Mass Index) 32.1 kg/m2 BSA (Body Surface Area) 1.85 m2 [place] body weight in kilograms 52 kg O2 % BldC Oximetry 96 % 09/29/2017 10:27am BP Systolic Sitting Left Arm 116 mmHg BP Diastolic Sitting Left Arm 76 mmHg Heart Rate 76 /min Respiratory Rate 16 /min Height 63 inches 5'3" Weight 175.00 lb BMI (Body Mass Index) 31.0 kg/m2 BSA (Body Surface Area) 1.83 m2 [place] body weight in kilograms 52 kg 08/28/2017 11:00am BP Systolic 106 mmHg BP Diastolic 68 mmHg Body Temperature 97.0 F Heart Rate 104 /min Height 63 inches 5'3" Weight 174.00 lb BMI (Body Mass Index) 30.8 kg/m2 BSA (Body Surface Area) 1.82 m2 [place] body weight in kilograms 52 kg O2 % BldC Oximetry 96 % 07/31/2017 12:59pm BP Systolic Sitting Left Arm 134 mmHg BP Diastolic Sitting Left Arm 82 mmHg Heart Rate 86 /min Respiratory Rate 16 /min Height 63 inches 5'3" Weight 175.00 lb BMI (Body Mass Index) 31.0 kg/m2 BSA (Body Surface Area) 1.83 m2 [place] body weight in kilograms 52 kg O2 % BldC Oximetry 95 % 05/28/2017 1:32pm BP Systolic Sitting Right Arm 105 mmHg BP Diastolic Sitting Right Arm 74 mmHg Body Temperature 98.4 F Heart Rate 86 /min Respiratory Rate 16 /min Height 63 inches 5'3" Weight 170.12 lb BMI (Body Mass Index) 30.1 kg/m2 BSA (Body Surface Area) 1.81 m2 [place] body weight in kilograms 52 kg Pain Level 5 05/20/2017 1:17pm BP Systolic Sitting Left Arm 128 mmHg BP Diastolic Sitting Left Arm 72 mmHg Height 63 inches 5'3" Weight 168.50 lb BMI (Body Mass Index) 29.8 kg/m2 BSA (Body Surface Area) 1.80 m2 [place] body weight in kilograms 52 kg 04/21/2017 9:36am BP Systolic 122 mmHg BP Diastolic 88 mmHg Heart Rate 100 /min Height 62 inches 5'2" Weight 165.00 lb per pt BMI (Body Mass Index) 30.2 kg/m2 BSA (Body Surface Area) 1.76 m2 [place] body weight in kilograms 50 kg 04/03/2017 9:45am BP Systolic 102 mmHg BP Diastolic 64 mmHg Body Temperature 97.7 F Heart Rate 71 /min Height 62 inches 5'2" Weight 165.12 lb BMI (Body Mass Index) 30.2 kg/m2 BSA (Body Surface Area) 1.76 m2 [place] body weight in kilograms 50 kg O2 % BldC Oximetry 97 % 03/21/2017 1:30pm BP Systolic 110 mmHg BP Diastolic 72 mmHg Body Temperature 98.2 F Height 62 inches 5'2" Weight 163.50 lb BMI (Body Mass Index) 29.9 kg/m2 BSA (Body Surface Area) 1.75 m2 [place] body weight in kilograms 50 kg 03/11/2017 2:06pm BP Systolic Sitting Left Arm 108 mmHg BP Diastolic Sitting Left Arm 66 mmHg Heart Rate 76 /min Respiratory Rate 16 /min Height 62 inches 5'2" Weight 162.00 lb BMI (Body Mass Index) 29.6 kg/m2 BSA (Body Surface Area) 1.75 m2 [place] body weight in kilograms 50 kg 02/06/2017 8:54am BP Systolic 120 mmHg BP Diastolic 76 mmHg Body Temperature 97.8 F Heart Rate 78 /min Height 62 inches 5'2" Weight 162.12 lb BMI (Body Mass Index) 29.6 kg/m2 BSA (Body Surface Area) 1.75 m2 [place] body weight in kilograms 50 kg Last Menstrual Period [id number] 01/15/2017 10:03am BP Systolic Sitting Left Arm 122 mmHg BP Diastolic Sitting Left Arm 82 mmHg Heart Rate 74 /min Respiratory Rate 16 /min Height 62 inches 5'2" Weight 160.00 lb BMI (Body Mass Index) 29.3 kg/m2 BSA (Body Surface Area) 1.74 m2 [place] body weight in kilograms 50 kg 09/11/2016 3:45pm BP Systolic Sitting Right Arm 118 mmHg BP Diastolic Sitting Right Arm 78 mmHg Heart Rate 61 /min Respiratory Rate 16 /min Height 62 inches 5'2" Weight 161.00 lb BMI (Body Mass Index) 29.4 kg/m2 BSA (Body Surface Area) 1.74 m2 [place] body weight in kilograms 50 kg Results Test Date Facility Test Result H/L Range Note Poc Urinalysis 03/19/2018 [facility] Poc Glucose, Negative Negative [phone] Urine Poc Bilirubin, Urine Negative Negative Poc Ketone, Urine Negative Negative Poc Specific [place], Urine 1.015 N 1.010-1.030 Poc Blood, Urine 1+ Abnormal Negative Poc pH, Urine 5.5 N 5-9 Poc Protein, Urine Negative Negative Poc Urobilinogen, Urine 0.2 Negative Poc Nitrite, Urine Negative Negative Poc Leukocytes, Urine Negative Negative Poc Color, Urine Yellow Poc Clarity, Urine Clear 1 Laboratory test 03/19/2018 [facility] Poc , Negative Negative 2 finding [phone] Urine Rapid Influenza 11/23/2017 [facility] Influenza A NEGATIVE Negative 3 A & B Molecular [phone] Molecular Influenza B Molecular NEGATIVE Negative LDL Cholesterol 08[facility]28/2017 [facility] Cholesterol 135 mg/dL <200 4, 5 Profile [address] [place] [address] [phone] Triglycerides 142 mg/dL <150 6 HDL Cholesterol 44 mg/dL >40 7 LDL-Cholesterol 63 mg/dL < 100 8 Comprehensive Metabolic 08/28/2017 [facility] Glucose 100 mg/dL N 74-106 Panel [address] [place] [address] [phone] BUN 13 mg/dL N 7-18 Creatinine 0.8 mg/dL N 0.6-1.3 Glom Filtration Rate, Estimate >60 mL/min >60 If >60 mL/min >60 9 BUN/Creat 16.2 ratio Sodium 143 mmol/L N 136-145 Potassium 3.9 mmol/L N 3.5-5.1 Chloride 111 mmol/L High 98-107 Carbon Dioxide 25 mmol/L N 21-32 Anion Gap 7 mEq/L Low 8-16 Calcium 8.5 mg/dL N 8.5-10.1 Total Protein 7.2 g/dL N 6.4-8.2 Albumin 3.8 g/dL N 3.4-5.0 Globulin 3.4 g/dL N 1.9-4.3 Alb/Glob 1.1 ratio Bilirubin,Total 0.3 mg/dL N 0.2-1.0 Sgot/Ast 15 U/L N 15-37 SGPT/Alt 25 U/L N 12-78 Alkaline Phosphatase 54 U/L N 45-117 Leukocyte esterase 08/06/2017 N2N/CCD Import Leukocyte Negative Negative Ur Ql Strip.auto esterase Ur Ql Strip.auto Ketones Ur 08/06/2017 N2N/CCD Import Ketones Ur Negative Negative Strip.auto-mCnc Strip.auto-mCnc Color Ur 08/06/2017 N2N/CCD Import Color Ur Yellow Yellow Ua RFX Micro & 08/06/2017 [facility] Urine Color YELLOW Yellow 10 Culture II [address] [place] [address] [phone] Urine Clarity CLEAR Clear Urine Glucose - Dipstick NEGATIVE mg/dL Negative Urine Bilirubin - Dipstick NEGATIVE Negative Urine Ketone NEGATIVE mg/dL Negative Urine Specific [place] 1.025 N 1.010-1.030 Urine Blood MODERATE Abnormal Negative Urine PH 6.0 Low 6.5-7.5 Urine Protein - Dipstick NEGATIVE mg/dL Negative Urine Urobilinogen - Dipstick 0.2 E.U./dL N 0.2-1.0 Urine Nitrite - Dipstick NEGATIVE Negative Urine Leuk Esterase NEGATIVE Negative Urine RBC 2-5 rbc/hpf 0-2 Urine WBC 0-2 wbc/hpf 0-7 Urine Epithelial Cells FEW /lpf None Seen Urine Bacteria VERY FEW None Seen Source: URINE, CLEAN CAT <SEE NOTE> 11 WBC # Bld Auto 08/06/2017 N2N/CCD Import WBC # Bld Auto 15.0 High 3.1- 10.7 Serum sodium 08/06/2017 N2N/CCD Import Serum sodium 140 136-145 measurement measurement Serum or plasma 08/06/2017 N2N/CCD Import Serum or plasma 13 7-18 urea nitrogen urea nitrogen measurement measurement (mass/vo (mass/volume) Serum or plasma 08/06/2017 N2N/CCD Import Serum or plasma 0.3 0.2-1.0 total bilirubin total bilirubin measurement measurement (mass/ (mass/volume) Serum or plasma 08/06/2017 N2N/CCD Import Serum or plasma 8.1 6.4-8.2 protein protein measurement measurement (mass/volume) (mass/volume) Serum or plasma 08/06/2017 N2N/CCD Import Serum or plasma 99 74-106 glucose glucose measurement measurement (mass/volume) (mass/volume) Serum or plasma 08/06/2017 N2N/CCD Import Serum or plasma 0.9 0.6-1.3 creatinine creatinine measurement measurement (mass/volum (mass/volume) Nitrite Ur Ql 08/06/2017 N2N/CCD Import Nitrite Ur Ql Negative Negative Strip.auto Strip.auto Prot Ur 08/06/2017 N2N/CCD Import Prot Ur Negative Negative Strip.auto-mCnc Strip.auto-mCnc Specific gravity 08/06/2017 N2N/CCD Import Specific gravity 1.025 1.010- 1.030 of Urine by of Urine by Automated test Automated test strip strip Urine appearance 08/06/2017 N2N/CCD Import Urine appearance Clear Clear determination determination Urine glucose 08/06/2017 N2N/CCD Import Urine glucose Negative Negative measurement by measurement by automated test automated test strip strip (mass/volume) Urine hemoglobin 08/06/2017 N2N/CCD Import Urine hemoglobin Moderate High Negative detection by detection by automated test automated test strip strip Urine total 08/06/2017 N2N/CCD Import Urine total Negative Negative bilirubin bilirubin detection by detection by automated test automated test strip Urobilinogen Ur 08/06/2017 N2N/CCD Import Urobilinogen Ur 0.2 0.2-1.0 Strip-aCnc Strip-aCnc pH Ur Strip.auto 08/06/2017 N2N/CCD Import pH Ur Strip.auto 6.0 Low 6.5- 7.5 Albumin/Glob 08/06/2017 N2N/CCD Import Albumin/Glob 1.1 SerPl SerPl Alt SerPl-cCnc 08/06/2017 N2N/CCD Import Alt SerPl-cCnc 21 12-78 Comprehensive 08/06/2017 [facility] Glucose 99 mg/dL N 74-106 Metabolic Panel [address] [place] [address] [phone] BUN 13 mg/dL N 7-18 Creatinine 0.9 mg/dL N 0.6-1.3 Glom Filtration Rate, Estimate >60 mL/min >60 If >60 mL/min >60 12 BUN/Creat 14.4 ratio Sodium 140 mmol/L N 136-145 Potassium 4.0 mmol/L N 3.5-5.1 Chloride 106 mmol/L N 98-107 Carbon Dioxide 32 mmol/L N 21-32 Anion Gap 2 mEq/L Low 8-16 Calcium 9.5 mg/dL N 8.5-10.1 Total Protein 8.1 g/dL N 6.4-8.2 Albumin 4.2 g/dL N 3.4-5.0 Globulin 3.9 g/dL N 1.9-4.3 Alb/Glob 1.1 ratio Bilirubin,Total 0.3 mg/dL N 0.2-1.0 Sgot/Ast 9 U/L Low 15-37 13 SGPT/Alt 21 U/L N 12-78 Alkaline Phosphatase 87 U/L N 45-117 Anion Gap SerPl-sCnc 08/06/2017 N2N/CCD Import Anion Gap SerPl-sCnc 2 Low 8-16 Automated blood 08/06/2017 N2N/CCD Import Automated blood 0.04 0.0-0.1 basophil count basophil count (count/volume) (count/volume) Automated blood 08/06/2017 N2N/CCD Import Automated blood 0.15 0.0-0.5 eosinophil count eosinophil count Automated blood 08/06/2017 N2N/CCD Import Automated blood 43.7 36.0-46. hematocrit (volume hematocrit (volume 1 fraction) fraction) Automated blood 08/06/2017 N2N/CCD Import Automated blood 2.40 1.0-4.0 lymphocyte count lymphocyte count (number/volume) (number/volume) Automated blood 08/06/2017 N2N/CCD Import Automated blood 322 155-360 platelet count platelet count Automated blood 08/06/2017 N2N/CCD Import Automated blood 9.2 8.9-12.4 platelet mean volume platelet mean volume measurement measurement Automated 08/06/2017 N2N/CCD Import Automated 30.3 25.9-32. erythrocyte mean erythrocyte mean 7 corpuscular corpuscular hemoglobin hemoglobin (mass per erythrocyte) Automated 08/06/2017 N2N/CCD Import Automated 34.8 High 30.8-34. erythrocyte mean erythrocyte mean 3 corpuscular corpuscular hemoglobin hemoglobin concentration measurement (mass/volume) Automated 08/06/2017 N2N/CCD Import Automated 87.1 80.9-99. erythrocyte mean erythrocyte mean 0 corpuscular volume corpuscular volume BUN/Creat SerPl 08/06/2017 N2N/CCD Import BUN/Creat SerPl 14.4 Basophils/leuk NFr 08/06/2017 N2N/CCD Import Basophils/leuk NFr 0.3 0.0- 1.1 Bld Auto Bld Auto Blood erythrocytes 08/06/2017 N2N/CCD Import Blood erythrocytes 5.02 3.90-5.4 automated count automated count 0 (number/volume) (number/volume) Blood hemoglobin 08/06/2017 N2N/CCD Import Blood hemoglobin 15.2 11.6- 15. measurement measurement 8 (mass/volume) (mass/volume) Blood monocytes 08/06/2017 N2N/CCD Import Blood monocytes 0.85 0.3-0.9 automated count automated count (number/volume) (number/volume) Serum or plasma 08/06/2017 N2N/CCD Import Serum or plasma 9.5 8.5-10.1 calcium measurement calcium measurement (mass/volume) (mass/volume) Serum or plasma 08/06/2017 N2N/CCD Import Serum or plasma 9 Low 15-37 aspartate aspartate aminotransferase aminotransferase measure measurement (enzymatic activity/volume) Serum or plasma 08/06/2017 N2N/CCD Import Serum or plasma 87 45-117 alkaline phosphatase alkaline phosphatase measurement ( measurement (enzymatic activity/volume) Serum or plasma 08/06/2017 N2N/CCD Import Serum or plasma 4.2 3.4-5.0 albumin measurement albumin measurement (mass/volume) (mass/volume) Serum carbon dioxide 08/06/2017 N2N/CCD Import Serum carbon dioxide 32 21-32 measurement measurement RDW RBC Auto-Rto 08/06/2017 N2N/CCD Import RDW RBC Auto-Rto 12.4 11.7- 14. 4 RDW RBC Auto 08/06/2017 N2N/CCD Import RDW RBC Auto 38.6 3-47 Potassium SerPl-sCnc 08/06/2017 N2N/CCD Import Potassium SerPl-sCnc 4.0 3.5-5.1 Neutrophils/leuk NFr 08/06/2017 N2N/CCD Import Neutrophils/leuk NFr 77.0 High 40.4-72. Bld Auto Bld Auto 8 Neutrophils # Bld 08/06/2017 N2N/CCD Import Neutrophils # Bld 11.52 High 1.8-7.0 Auto Auto Chloride SerPl-sCnc 08/06/2017 N2N/CCD Import Chloride SerPl-sCnc 106 98 -107 Eosinophil/leuk NFr 08/06/2017 N2N/CCD Import Eosinophil/leuk NFr 1.0 0.0-6.6 Bld Auto Bld Auto Globulin Ser 08/06/2017 N2N/CCD Import Globulin Ser 3.9 1.9-4.3 Calc-mCnc Calc-mCnc Lymphocytes/leuk NFr 08/06/2017 N2N/CCD Import Lymphocytes/leuk NFr 16.0 Low 20.0-42. Bld Auto Bld Auto 0 Monocytes/leuk NFr 08/06/2017 N2N/CCD Import Monocytes/leuk NFr 5.7 4.3- 13.2 Bld Auto Bld Auto TSH Reflex FT4 02/06/2017 [facility] Thyroid Stim Hormone 1.91 N 0.30-4.2 14 And/Or FT3 [address] uIU/mL 0 [place] [address] [phone] Reflex add FT3? Y Reflex add FT4? Y LDL Cholesterol 02/06/2017 [facility] Cholesterol 263 mg/dL High <200 [address] [place] [address] [phone] Triglycerides 480 mg/dL High <150 16 HDL Cholesterol 32 mg/dL Low >40 17 LDL-Cholesterol TNP mg/dL < 100 18 Reflex add FT3? Y Reflex add FT4? Y Glycohemoglobin A1c 02/06/2017 [facility] Glycohemoglobin 5.8 % N 4.2-6.3 19 [address] (A1c) [place] [address] [phone] eAG 120 mg/dL Blood glucose mean 02/06/2017 N2N/CCD Import Blood glucose mean 120 value measurement value measurement estimated fro estimated from glycated hemoglobin (mass/volume) Hgb A1c MFr Bld 02/06/2017 N2N/CCD Import Hgb A1c MFr Bld 5.8 4.2-6.3 TSH SerPl-aCnc 02/06/2017 N2N/CCD Import TSH SerPl-aCnc 1.91 0.30-4. 20 Serum or plasma 02/06/2017 N2N/CCD Import Serum or plasma 480 High <150 triglyceride triglyceride measurement measurement (mass/vol (mass/volume) Serum or plasma 02/06/2017 N2N/CCD Import Serum or plasma 263 High <200 cholesterol cholesterol measurement measurement (mass/volu (mass/volume) Serum or plasma 02/06/2017 N2N/CCD Import Serum or plasma 32 Low >40 cholesterol in HDL cholesterol in HDL measurement (ma measurement (mass/volume) 1 Sound Recording Technician: [id number] 2 Sound Recording Technician: [id number] If is still suspected, please repeat test after 48 to 72 hours. 3 Sound Recording Technician: [id number] 4 E78.5 5 Reference Guidelines*: Desirable: ........... < 200 mg/dL Borderline High: ..... 200-239 mg/dL High: ................ >=240 mg/dL * The National Cholesterol Education Program (NCEP) 6 Reference Guidelines*: Normal: ............. < 150 mg/dL Borderline High: .... 150-199 mg/dL High: ............... 200-499 mg/dL Very High: .......... > 500 mg/dL * Source: National Cholesterol Education Program (NCEP) 7 Reference Guidelines*: Low HDL: ..... < 40 mg/dL Normal: ..... 40-60 mg/dL Desirable: ... > 60 mg/dL *The National Cholesterol Education Program(NCEP) 8 Reference Guidelines*: Optimal:........... <100 mg/dL Near Optimal....... 100-129 mg/dL Borderline High.... 130-159 mg/dL High............... 160-189 mg/dL Very High.......... >=190 mg/dL * Source: National Cholesterol Education Program (NCEP) 9 Note: Persistent reduction for 3 months or more in an eGFR <60 mL/min/1.73 m2 defines CKD. Patients with eGFR values >/=60 mL/min/1.73 m2 may also have CKD if evidence of persistent proteinuria is present. The original MDRD equation for estimated GFR is not valid for patients less than 18 years of age. Additional information may be found at www.kdoqi.org. 10 BACK PAIN, KIDNEY INFECTION, CONGESTION 11 URINE, CLEAN CATCH 12 Note: Persistent reduction for 3 months or more in an eGFR <60 mL/min/1.73 m2 defines CKD. Patients with eGFR values >/=60 mL/min/1.73 m2 may also have CKD if evidence of persistent proteinuria is present. The original MDRD equation for estimated GFR is not valid for patients less than 18 years of age. Additional information may be found at www.kdoqi.org. 13 Values below the stated reference ranges of AST and ALT can be seen in normal populations. Clinical correlation is suggested. 14 E78.5 15 Reference Guidelines*: Desirable: ........... < 200 mg/dL Borderline High: ..... 200-239 mg/dL High: ................ >=240 mg/dL * The National Cholesterol Education Program (NCEP) 16 Reference Guidelines*: Normal: ............. < 150 mg/dL Borderline High: .... 150-199 mg/dL High: ............... 200-499 mg/dL Very High: .......... > 500 mg/dL * Source: National Cholesterol Education Program (NCEP) 17 Reference Guidelines*: Low HDL: ..... < 40 mg/dL Normal: ..... 40-60 mg/dL Desirable: ... > 60 mg/dL *The National Cholesterol Education Program(NCEP) 18 (LDL CANNOT BE CALCULATED FOR TRIGS >400 mg/dL) 19 Elevated levels of HbA1c suggest the need for more aggressive treatment of glycemia. The [place] [employer] recommends that a primary goal of therapy should be a HbA1c of <7% and that physicians should re-evaluate the treatment regimen in patients with HbA1c values consistently >8%. Procedures Date Code Description Status 07/29/2018 43672 [employer] Heart Rhythm Completed Derived Data 07/24/2018 68976 Implanation Of Cardiac Event Recorder Completed 09/25/2017 71030 Echocardiogram Complete Completed 04/01/2017 [id number] Mammogram Completed 03/18/2017 68773 Retina Completed 03/18/2017 81921 Eye Exam New Patient Comprehensive Completed 02/03/2017 40583 Event Monitor Inter/Review Only Completed 01/15/2017 46942 EKG-Tracing And Report Completed 09/11/2016 21331 EKG-Tracing And Report Completed Encounters Type Date Location Provider Dx Diagnosis Office Visit 09/08/2018 Pulmonology Ana Alonso PA J44.9 Chronic obstructive 3:20p pulmonary disease, unspecified K21.9 Gastro-esophageal reflux disease without esophagitis R91.8 Other nonspecific abnormal finding of lung field F17.200 Nicotine dependence, unspecified, uncomplicated Z71.6 Tobacco abuse counseling Z68.26 Body mass index (BMI) 26.0-26.9, adult Office Visit 07/31/2018 11:30a Pulmonology Ana Alonso J44.9 Chronic obstructive PA pulmonary disease, unspecified K21.9 Gastro-esophageal reflux disease without esophagitis R91.8 Other nonspecific abnormal finding of lung field F17.200 Nicotine dependence, unspecified, uncomplicated Z72.0 Tobacco use Office Visit 01/28/2018 11:30a Pulmonology Jason Magallon MD J44.9 Chronic obstructive pulmonary disease, unspecified K21.9 Gastro-esophageal reflux disease without esophagitis J20.9 Acute bronchitis, unspecified R91.8 Other nonspecific abnormal finding of lung field Office Visit 09/29/2017 Cardiology Yusra Mishra I49.3 Ventricular 10:20a Office REMA Jackson, premature 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 depolarization I47.1 Supraventricular tachycardia E78.5 Hyperlipidemia, unspecified Office Visit 08/28/2017 11:00a Family Medicine Sheila Garcia, F41.9 Anxiety disorder, West RD M.D. unspecified R00.2 Palpitations F33.1 Major depressive disorder, recurrent, moderate E78.5 Hyperlipidemia, unspecified Z23 Encounter for immunization Office Visit 05/28/2017 1:30p [facility] [place], S93.402A Sprain of Office Michael Varma unspecified ligament of left ankle, init encntr Office Visit 05/20/2017 1:15p Family Medicine Sheila Garcia, M79.672 Pain in left foot [address] RD M.D. M79.672 Pain in left foot Office Visit 04/21/2017 Family Maureen S93.402A Sprain of 9:30a Medicine [place] RAQUEL Fierro unspecified RD ligament of left ankle, init encntr M79.672 Pain in left foot Office Visit 04/03/2017 9:45a [facility] Vadim Reddy FNP R[address] Z72.0 Tobacco use Z20.1 Contact with and (suspected) exposure to tuberculosis Z71.6 Tobacco abuse counseling Office Visit 03/21/2017 Family Maureen, J45.30 Mild persistent 1:30p Medicine [place] RAQUEL Fierro asthma, RD uncomplicated Z72.0 Tobacco use Z71.6 Tobacco abuse counseling Office Visit 03/11/2017 2:00p Cardiology Office Yusra Mishra R00.2 Palpitations REMA Jackson, 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 I71.2 Thoracic aortic aneurysm, without rupture E78.5 Hyperlipidemia, unspecified F17.201 Nicotine dependence, unspecified, in remission Office Visit 02/06/2017 9:00a Family Medicine Sheila Garcia, F41.9 Anxiety disorder, West RD M.D. 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 Start a gentle exercise program to lose weight, help with conditioning and strengthening to help improve breathingand reduce work of breathing. Daily exercise and trying to sustain for 30 minutes a day.Follow up: 6 mruemX78.9 Gastro-esophageal reflux disease without esophagitisComments: Continue omeprazole daily and avoid triggers, such as cigarettes and irritating foods such as chocolate, garlic, onion, acidic fruits and tomatoes, soda and coffee.R91.8 Other nonspecific abnormal finding of lung fieldComments:I will call you after upcoming chest CT this week.F17.200 Nicotine dependence, unspecified, [id number] Tobacco abuse counselingComments:Continue to use Wellbutrin and decrease cigarettes.Z68.26 Body mass index (BMI) 26.0-26.9, adultComments:Try portion control and cutting carbs, drinking more water, eating more veggies and fruits. Try not to eat and drink within 2-3 hours of lying down.AllComments:Please establish with a primary care provider.
[2018-09-22 07:41] VITALS: BP 128/67
--- NOTE | 2018-09-22 07:59 | UC ---
Respiratory Complaint HPI - HPI Summary HPI Summary: cough x 3 days chest congestion / tightness, "chest is burning" wheezing nasal congestion , pnd, no sore throat, feels feverish , no chills - History of Current Complaint Chief Complaint: UCRespiratory Stated Complaint: SINUSES, SORE THROAT Time Seen by Provider: 09/22/18 07:35 Hx Obtained From: Patient Hx Last Menstrual Period: 08/2018 ?: No Onset/Duration: Gradual Onset, Lasting Days - 3, Still Present Timing: Constant Severity Initially: Moderate Severity Currently: Moderate Pain Intensity: 6 Character: Cough: Nonproductive Aggravating Factors: Exertion, Deep Breaths Associated Signs And Symptoms: Positive: Dyspnea, Fever, Wheezing, URI, Nasal Congestion. Negative: Chills, Pleuritic Chest Pain, Hemoptysis, Dizziness, Calf Pain, Calf Swelling - Allergies/Home Medications Allergies/Adverse Reactions: Allergies Allergy/AdvReac Type Severity Reaction Status Date / Time latex Allergy Intermediate burning Verified 09/22/18 07:34 sensation Home Medications: Home Medications Bupropion XL* [Wellbutrin XL *] 150 mg PO DAILY 09/22/18 [History Confirmed ] Guaifen/Phenyleph/Acetaminophn [Tylenol Cold Head Congest Cplt] 1 each PO ONCE 09/22/18 [History Confirmed 09/22/18] Montelukast Sodium TAB* [Singulair 5 mg TAB*] 1 dose PO DAILY 09/22/18 [History Confirmed 09/22/18] PMH/Surg Hx/FS Hx/Imm Hx - Additional Past Medical History Additional PMH: SLE Cardiovascular History: Cardiac Disease Respiratory History: Asthma GI/ History: Gastroesophageal Reflux Other History Of: Hepatitis C - Surgical History Surgical History: Yes Surgery Procedure, Year, and Place: Tubal Ligation, 1995, [place] - Tonsillectomy, - Family History Known Family History: Positive: Cardiac Disease, Respiratory Disease - Social History Alcohol Use: Rare Substance Use Type: None Smoking Status (MU): Heavy Every Day Tobacco Smoker Type: eCigarettes Amount Used/How Often: 2-3 cigs daily Length of Time of Smoking/Using Tobacco: 1/2 - 1 PPD x 35 Years Have You Smoked in the Last Year: Yes When Did the Patient Quit Smoking/Using Tobacco: 02/26/18 Household Exposure Type: Cigarettes - Immunization History Most Recent Influenza Vaccination: no Review of Systems All Other Systems Reviewed And Are Negative: Yes Constitutional: Positive: Fever, Fatigue. Negative: Chills Skin: Positive: Negative Eyes: Positive: Negative ENT: Positive: Sore Throat, Nasal Discharge, Sinus Congestion Respiratory: Positive: Shortness Of Breath, Cough Cardiovascular: Positive: Negative Is Patient Immunocompromised?: No Physical Exam Triage Information Reviewed: Yes Appearance: Well-Appearing, No Pain Distress, Well-Nourished Vital Signs: Initial Vital Signs Temp 97.7 F 09/22/18 07:34 Pulse 95 09/22/18 07:34 Resp 16 09/22/18 07:34 BP 128/67 09/22/18 07:34 Pulse Ox 97 09/22/18 07:34 Vital Signs Reviewed: Yes Eye Exam: Normal Eyes: Positive: Conjunctiva Clear ENT: Positive: Normal ENT inspection, Hearing grossly normal, Pharyngeal erythema, Nasal congestion, TMs normal. Negative: Nasal drainage Neck: Positive: Supple, Nontender, No Lymphadenopathy Respiratory: Positive: Chest non-tender, No respiratory distress, Wheezing Cardiovascular: Positive: RRR, No Murmur, Pulses Normal Skin Exam: Normal UC Diagnostic Evaluation - Laboratory O2 Sat by Pulse Oximetry: 97 Respiratory Course/Dx - Differential Dx/Diagnosis Provider Diagnosis: Viral bronchitis Discharge - Sign-Out/Discharge Documenting (check all that apply): Patient Departure All imaging exams completed and their final reports reviewed: No Studies - Discharge Plan Condition: Stable Disposition: HOME Prescriptions: Albuterol 2.5MG/3ML (0.083%)* [Ventolin 2.5 MG/3 ML NEB.HARJINDER*] 2.5 mg INH Q6H #1 box predniSONE TAB* [Deltasone 20 MG TAB*] 40 mg PO DAILY #10 tab Patient Education Materials: Acute Bronchitis (ED) Referrals: Jamel Horton MD [Primary Care Provider] - 7 Days - Billing Disposition and Condition Condition: STABLE Disposition: Home
== END 2018-09-22 08:00 | disposition home or self-care (01) ==
LOC: UCCORT 07:26
DX: J20.8 Acute bronchitis due to other specified organisms (principal); R09.81 Nasal congestion; J45.909 Unspecified asthma, uncomplicated; F17.290 Nicotine dependence, other tobacco product, uncomplicated; Z91.040 Latex allergy status
CPT/HCPCS: 99212; G0463

== ENCOUNTER 2018-10-20 10:56 | Emergency (ER) | payer BC ==
[2018-10-20 11:24] VITALS: BP 137/62
--- NOTE | 2018-10-20 11:32 | UC ---
UC General HPI - HPI Summary HPI Summary: pt c/o nausea with vomiting on friday and then diarrhea on friday as well. no fever, abdominal pain, travel hx or recent antibiotic use. no hx IBD. reports being improved now but needs a work note for today. - History of Current Complaint Chief Complaint: UCGeneralIllness Stated Complaint: VOMITING,DIARRHEA Time Seen by Provider: 10/20/18 11:25 Hx Obtained From: Patient Hx Last Menstrual Period: 10/18/18 Pain Intensity: 3 Associated Signs & Symptoms: Negative: Abdominal Pain, Fever - Allergy/Home Medications Allergies/Adverse Reactions: Allergies Allergy/AdvReac Type Severity Reaction Status Date / Time latex Allergy Intermediate burning Verified 09/22/18 07:34 sensation PMH/Surg Hx/FS Hx/Imm Hx - Additional Past Medical History Additional PMH: Lupus Other History Of: Hepatitis C - Surgical History Surgical History: Yes Surgery Procedure, Year, and Place: Tubal Ligation, 1995, [place] - Tonsillectomy, s - Family History Known Family History: Positive: Cardiac Disease, Respiratory Disease - Social History Alcohol Use: Occasionally Substance Use Type: None Smoking Status (MU): Former Smoker Type: eCigarettes Amount Used/How Often: 2-3 cigs daily Length of Time of Smoking/Using Tobacco: 1/2 - 1 PPD x 35 Years Have You Smoked in the Last Year: Yes When Did the Patient Quit Smoking/Using Tobacco: 08/2018 Household Exposure Type: Cigarettes - Immunization History Most Recent Influenza Vaccination: no Review of Systems All Other Systems Reviewed And Are Negative: Yes Constitutional: Positive: Negative Skin: Positive: Negative Eyes: Positive: Negative ENT: Positive: Negative Respiratory: Positive: Negative Cardiovascular: Positive: Negative Gastrointestinal: Negative: Abdominal Pain Genitourinary: Positive: Negative Motor: Positive: Negative Neurovascular: Positive: Negative Musculoskeletal: Positive: Negative Neurological: Positive: Negative Psychological: Positive: Negative Physical Exam Triage Information Reviewed: Yes Appearance: Well-Appearing Vital Signs: Initial Vital Signs Temp 97.9 F 10/20/18 11:21 Pulse 90 10/20/18 11:21 Resp 16 10/20/18 11:21 BP 137/62 10/20/18 11:21 Pulse Ox 100 10/20/18 11:21 Vital Signs Reviewed: Yes Eyes: Positive: Conjunctiva Clear ENT: Positive: Pharynx normal, TMs normal, Other - Mouth is moist. Negative: Nasal congestion, Nasal drainage Neck: Positive: Supple, Nontender, No Lymphadenopathy Respiratory: Positive: Lungs clear, Normal breath sounds Cardiovascular: Positive: RRR, No Murmur, Brisk Capillary Refill. Negative: Tachycardia Abdomen Description: Positive: Nontender, No Organomegaly, Soft. Negative: Distended, Guarding Bowel Sounds: Positive: Present Musculoskeletal: Positive: ROM Intact Neurological: Positive: Alert Psychological: Positive: Age Appropriate Behavior Skin Exam: Normal Course/Dx - Differential Dx - Multi-Symptom Differential Diagnoses: Other - non toxic. no acute abdomen. no concern for parasite or bacterial infection. pt already much improved. - Diagnoses Provider Diagnosis: Nausea & vomiting, Diarrhea Discharge - Sign-Out/Discharge Documenting (check all that apply): Patient Departure All imaging exams completed and their final reports reviewed: No Studies - Discharge Plan Condition: Stable Disposition: HOME Patient Education Materials: Acute Nausea and Vomiting (ED), Acute Diarrhea (ED ) Forms: *Work Release Referrals: DORI Castañeda [Medical Doctor] - 3 Days - Billing Disposition and Condition Condition: STABLE Disposition: Home
== END 2018-10-20 11:37 | disposition home or self-care (01) ==
LOC: UCCORT 10:56
DX: R11.2 Nausea with vomiting, unspecified (principal); R19.7 Diarrhea, unspecified; Z91.040 Latex allergy status; Z87.891 Personal history of nicotine dependence
CPT/HCPCS: 99211; G0463

== ENCOUNTER 2018-11-29 09:18 | Emergency (ER) | payer BC ==
[2018-11-29 10:52] VITALS: BP 121/78
--- NOTE | 2018-11-29 11:31 | UC ---
Throat Pain/Nasal Kyler HPI - HPI Summary HPI Summary: c/o of on/off pain in her [place] area, sinus congestion, runny nose, chest congestion and coughing for the past 1-2 weeks. denies fever. - History of Current Complaint Chief Complaint: UCRespiratory Stated Complaint: SINUS COMPLAINT Time Seen by Provider: 11/29/18 11:22 Hx Obtained From: Patient Hx Last Menstrual Period: 11/04/18 ?: No Onset/Duration: Sudden Onset, Lasting Days Severity: Moderate Pain Intensity: 6 Associated Signs & Symptoms: Positive: Dysphagia, Sinus Discomfort, Nasal Discharge - Allergies/Home Medications Allergies/Adverse Reactions: Allergies Allergy/AdvReac Type Severity Reaction Status Date / Time latex Allergy Intermediate burning Verified 11/29/18 10:53 sensation PMH/Surg Hx/FS Hx/Imm Hx Previously Healthy: Yes Other History Of: Hepatitis C - Surgical History Surgical History: Yes Surgery Procedure, Year, and Place: Tubal Ligation, 1995, [place] - Tonsillectomy, - Family History Known Family History: Positive: Cardiac Disease, Respiratory Disease - Social History Alcohol Use: Occasionally Substance Use Type: None Smoking Status (MU): Former Smoker Type: eCigarettes Amount Used/How Often: daily usage Length of Time of Smoking/Using Tobacco: 1/2 - 1 PPD x 35 Years Have You Smoked in the Last Year: Yes When Did the Patient Quit Smoking/Using Tobacco: 08/2018 Household Exposure Type: Cigarettes - Immunization History Most Recent Influenza Vaccination: no Review of Systems All Other Systems Reviewed And Are Negative: Yes Constitutional: Positive: Fatigue Skin: Positive: Negative Eyes: Positive: Negative ENT: Positive: Sore Throat, Ear Ache, Nasal Discharge, Sinus Congestion, Sinus Pain/Tenderness Respiratory: Positive: Cough Cardiovascular: Positive: Negative Gastrointestinal: Positive: Negative Genitourinary: Positive: Negative Motor: Positive: Negative Neurovascular: Positive: Negative Musculoskeletal: Positive: Negative Neurological: Positive: Headache Is Patient Immunocompromised?: No Physical Exam Triage Information Reviewed: Yes Appearance: Well-Nourished, Ill-Appearing, Pain Distress Vital Signs: Initial Vital Signs Temp 98.5 F 11/29/18 10:48 Pulse 93 11/29/18 10:48 Resp 16 11/29/18 10:48 BP 121/78 11/29/18 10:48 Pulse Ox 93 11/29/18 10:48 Vital Signs Reviewed: Yes Eye Exam: Normal ENT: Positive: Pharyngeal erythema - wiht pnd, Nasal congestion, Nasal drainage , Sinus tenderness - right frontal Dental Exam: Normal Neck exam: Normal Respiratory Exam: Normal Respiratory: Positive: Chest non-tender, Lungs clear, Normal breath sounds Cardiovascular Exam: Normal Cardiovascular: Positive: RRR, No Murmur, Pulses Normal Abdominal Exam: Normal Abdomen Description: Positive: Nontender, No Organomegaly, Soft Bowel Sounds: Positive: Present Musculoskeletal Exam: Normal Neurological Exam: Normal Psychological Exam: Normal Skin Exam: Normal Throat Pain/Nasal Course/Dx - Course Course Of Treatment: hx obtained, exam performed ,meds reviewed, treated for sinusitis - Differential Dx/Diagnosis Differential Diagnosis/HQI/PQRI: Influenza, Laryngitis, Otitis Media, Pharyngitis, Sinusitis, URI Provider Diagnosis: Sinusitis Discharge - Sign-Out/Discharge Documenting (check all that apply): Patient Departure All imaging exams completed and their final reports reviewed: No Studies - Discharge Plan Condition: Stable Disposition: HOME Prescriptions: Amoxicillin PO (*) [Amoxicillin 875 MG (*)] 875 mg PO BID #20 tab Patient Education Materials: Sinusitis (ED) Referrals: No Primary Care Phys,NOPCP [Primary Care Provider] - Additional Instructions: 1. take the medication as prescribed. 2. warm compresses to the area 3. Increase fluid intake 4. Follow up if not improving with treatment with your PCP - Billing Disposition and Condition Condition: STABLE Disposition: Home - Attestation Statements Provider Attestation: Per institutional requirements, I have reviewed the chart, however, I was not consulted specifically or made aware of this patient by the midlevel provider. I did not personally evaluate, interact with , or disposition this patient.
== END 2018-11-29 11:42 | disposition home or self-care (01) ==
LOC: UCCORT 09:18
DX: J32.9 Chronic sinusitis, unspecified (principal); R05 Cough; R09.89 Other specified symptoms and signs involving the circulatory and respiratory systems; R13.10 Dysphagia, unspecified; Z91.040 Latex allergy status; Z87.891 Personal history of nicotine dependence
CPT/HCPCS: 99212; G0463

== ENCOUNTER 2019-01-08 11:20 | Emergency (ER) | payer BC ==
[2019-01-08 13:14] VITALS: BP 121/66
[2019-01-08] MEDS ORDERED: Albuterol/Ipratropium NEB.SOL* Albuterol 2.5 MG/Ipratropium 0.5 MG 3 ML INH ONE (13:20)
--- NOTE | 2019-01-08 13:25 | UC ---
Respiratory Complaint HPI - HPI Summary HPI Summary: 48 year old female with head and chest congestion since last night. Pt states she has a "tickle" in her mid-chest when she breathes and feels wheezing. She has a hx of asthma and lupus, although she has not been using her rescue inhalers. No fever or chills. - History of Current Complaint Chief Complaint: UCGeneralIllness Stated Complaint: COUGH Time Seen by Provider: 01/08/19 12:52 Hx Obtained From: Patient Hx Last Menstrual Period: 01/06/19 ?: No Onset/Duration: Gradual Onset Severity Initially: Mild Severity Currently: Mild Pain Intensity: 4 Character: Cough: Productive - Mildly productive cough of yellow sputum. Aggravating Factors: Nothing Alleviating Factors: Nothing Associated Signs And Symptoms: Positive: Wheezing, URI - Allergies/Home Medications Allergies/Adverse Reactions: Allergies Allergy/AdvReac Type Severity Reaction Status Date / Time latex Allergy Intermediate burning Verified 01/08/19 13:09 sensation PMH/Surg Hx/FS Hx/Imm Hx Previously Healthy: Yes - HX lupus Respiratory History: Asthma Other History Of: Hepatitis C - Surgical History Surgical History: Yes Surgery Procedure, Year, and Place: Tubal Ligation, 1995, [place] - Tonsillectomy, - Family History Known Family History: Positive: Cardiac Disease, Respiratory Disease - Social History Alcohol Use: Occasionally Substance Use Type: None Smoking Status (MU): Former Smoker Type: eCigarettes Amount Used/How Often: daily usage Length of Time of Smoking/Using Tobacco: 1/2 - 1 PPD x 35 Years Have You Smoked in the Last Year: Yes When Did the Patient Quit Smoking/Using Tobacco: 08/2018 Household Exposure Type: Cigarettes - Immunization History Most Recent Influenza Vaccination: no Review of Systems All Other Systems Reviewed And Are Negative: Yes ENT: Positive: Nasal Discharge Respiratory: Positive: Cough - Mildly productive cough of yellow sputum, no distress Is Patient Immunocompromised?: No Physical Exam Triage Information Reviewed: Yes Appearance: Well-Appearing, No Pain Distress, Well-Nourished Vital Signs: Initial Vital Signs Temp 98.7 F 01/08/19 13:09 Pulse 70 01/08/19 13:09 Resp 17 01/08/19 13:09 BP 121/66 01/08/19 13:09 Pulse Ox 97 01/08/19 13:09 Vital Signs Reviewed: Yes Eye Exam: Normal ENT: Positive: Normal ENT inspection, Hearing grossly normal, Pharynx normal, Nasal congestion, TMs normal, Uvula midline Neck: Positive: Supple, Nontender, No Lymphadenopathy Respiratory: Positive: No respiratory distress, No accessory muscle use, Wheezing - Mild wheezing throughout with forced expiration. Cardiovascular: Positive: RRR, No Murmur, Pulses Normal, Brisk Capillary Refill Musculoskeletal Exam: Normal Neurological Exam: Normal Psychological Exam: Normal Skin Exam: Normal Respiratory Course/Dx - Course Course Of Treatment: duo neb treatment was refused by the patient because she stated years ago she had an episode of SVT following a nebulizer treatment. I believe at this time this is a viral cold with some mild bronchitis therefore good treat her with a tapering dose of prednisone to follow-up with her primary care provider in 3 or 4 days if no improvement. - Differential Dx/Diagnosis Provider Diagnosis: Bronchitis Discharge - Sign-Out/Discharge Documenting (check all that apply): Patient Departure All imaging exams completed and their final reports reviewed: No Studies - Discharge Plan Condition: Fair Disposition: HOME Prescriptions: predniSONE [Prednisone 20 MG TAB] 20 mg PO DAILY 9 Days #18 tablet Patient Education Materials: Acute Bronchitis (ED) Referrals: No Primary Care Phys,NOPCP [Primary Care Provider] - [facility] [Outside] Additional Instructions: Increase fluids, follow-up with your primary care provider in 4 or 5 days if no improvement. Take the prednisone with food. - Billing Disposition and Condition Condition: FAIR Disposition: Home
== END 2019-01-08 13:46 | disposition home or self-care (01) ==
LOC: UCCORT 11:20
DX: J40 Bronchitis, not specified as acute or chronic (principal); Z87.891 Personal history of nicotine dependence; Z91.040 Latex allergy status
CPT/HCPCS: 99212; A9270-GY; G0463

== ENCOUNTER 2019-01-18 10:08 | Emergency (ER) | payer BC ==
[2019-01-18 12:07] VITALS: BP 121/70
--- NOTE | 2019-01-18 12:20 | UC ---
Respiratory Complaint HPI - HPI Summary HPI Summary: 48 yo female ill x 10-14 days cough wheezing facial pressure and pain upper dental sensitivity and pain right otalgia - History of Current Complaint Chief Complaint: UCRespiratory Stated Complaint: SINUS COMPLAINT Time Seen by Provider: 01/18/19 12:11 Hx Obtained From: Patient Hx Last Menstrual Period: 01/03/19 Onset/Duration: Gradual Onset, Lasting Weeks Timing: Constant Severity Initially: Mild Severity Currently: Moderate Pain Intensity: 7 Pain Scale Used: 0-10 Numeric Character: Cough: Productive Aggravating Factors: Nothing Associated Signs And Symptoms: Positive: URI, Nasal Congestion, Sinus Discomfort - Allergies/Home Medications Allergies/Adverse Reactions: Allergies Allergy/AdvReac Type Severity Reaction Status Date / Time latex Allergy Intermediate burning Verified 01/18/19 11:59 sensation PMH/Surg Hx/FS Hx/Imm Hx Previously Healthy: Yes - LUPUS Cardiovascular History: Other Other Cardiovascular History: SVT Respiratory History: COPD Other History Of: Hepatitis C - Surgical History Surgical History: Yes Surgery Procedure, Year, and Place: Tubal Ligation, 1995, [place] - Tonsillectomy, - Family History Known Family History: Positive: Cardiac Disease, Respiratory Disease - Social History Alcohol Use: Occasionally Substance Use Type: None Smoking Status (MU): Former Smoker Type: eCigarettes Amount Used/How Often: daily usage Length of Time of Smoking/Using Tobacco: 1/2 - 1 PPD x 35 Years Have You Smoked in the Last Year: Yes When Did the Patient Quit Smoking/Using Tobacco: 08/2018 Household Exposure Type: Cigarettes - Immunization History Most Recent Influenza Vaccination: no Review of Systems All Other Systems Reviewed And Are Negative: Yes Constitutional: Positive: Fatigue Skin: Positive: Negative Eyes: Positive: Negative ENT: Positive: Ear Ache, Nasal Discharge, Sinus Congestion, Sinus Pain/ Tenderness Respiratory: Positive: Cough Cardiovascular: Positive: Negative Gastrointestinal: Positive: Negative Genitourinary: Positive: Negative Motor: Positive: Negative Neurovascular: Positive: Negative Musculoskeletal: Positive: Negative Neurological: Positive: Headache Psychological: Positive: Negative Physical Exam Triage Information Reviewed: Yes Appearance: Well-Appearing, No Pain Distress, Well-Nourished Vital Signs: Initial Vital Signs Temp 97.3 F 01/18/19 12:00 Pulse 82 01/18/19 12:00 Resp 15 01/18/19 12:00 BP 121/70 01/18/19 12:00 Pulse Ox 96 01/18/19 12:00 Vital Signs Reviewed: Yes Eyes: Positive: Conjunctiva Clear ENT: Positive: Nasal congestion, Nasal drainage. Negative: Hearing grossly normal - decreased hearing right ear, Tonsillar swelling, Tonsillar exudate, Dental tenderness, Sinus tenderness, Uvula midline Dental Exam: Normal Neck: Positive: Supple, Nontender, No Lymphadenopathy Respiratory: Positive: No respiratory distress, No accessory muscle use, Wheezing Cardiovascular: Positive: RRR Musculoskeletal: Positive: ROM Intact, No Edema Neurological: Positive: Alert Psychological Exam: Normal Skin Exam: Normal Respiratory Course/Dx - Differential Dx/Diagnosis Provider Diagnosis: Right otitis media, Sinusitis, Bronchitis Discharge - Sign-Out/Discharge Documenting (check all that apply): Patient Departure All imaging exams completed and their final reports reviewed: No Studies - Discharge Plan Condition: Stable Disposition: HOME Prescriptions: Amoxicillin/Clavulanate TAB* [Augmentin TAB 875*] 875 mg PO BID #14 tab Fluticasone NASAL SPRAY 50MCG* [Flonase NASAL SPRAY 50MCG*] 2 spray BOTH NARES BID #1 btl Patient Education Materials: Sinusitis (ED), Ear Infection (ED), Acute Bronchitis (ED) Referrals: Maria De Jesus Reddy NP [Primary Care Provider] - 4 Days (if not improving) Additional Instructions: warm facial compresses SALINE NASAL SPRAY 2 SPRAYS EACH NOSTRIL TWICE DAILY USE FLONASE ABOUT 5 MINUTES LATER - Billing Disposition and Condition Condition: STABLE Disposition: Home
== END 2019-01-18 12:36 | disposition home or self-care (01) ==
LOC: UCCORT 10:08
DX: H66.91 Otitis media, unspecified, right ear (principal); J32.9 Chronic sinusitis, unspecified; J44.9 Chronic obstructive pulmonary disease, unspecified; M32.9 Systemic lupus erythematosus, unspecified; I47.1 Supraventricular tachycardia; B19.20 Unspecified viral hepatitis C without hepatic coma; Z87.891 Personal history of nicotine dependence
CPT/HCPCS: 99212; G0463

== ENCOUNTER 2019-06-13 19:24 | Emergency (ER) | payer BC ==
--- OUTSIDE RECORDS SUMMARY | 2019-06-13 19:54 | XMS REPORT | Continuity of Care Document ---
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 pectoris Tobacco use Yusra Mishra, REMA, Onset: 09/11/2016 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 Hyperlipidemia Yusra Mishra, MSN, Onset: 03/11/2017 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 Tobacco user Yusra Mishra, REMA, Onset: 03/11/2017 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 Asthma Vadim Reddy FNP Onset: 03/21/2017 Chronic obstructive lung disease Ana Alonso PA Onset: 07/31/2018 Gastroesophageal reflux disease Ana Alonso PA Onset: 07/31/2018 Abnormal findings on diagnostic Ana Alonso PA Onset: 07/31/2018 imaging of lung Note: Followed by Pulmonology - likely benign 5mm RLL lung nodule - repeat chest CT in August 2018 Counseling about tobacco use Ana Alonso PA Onset: 09/08/2018 Body mass index 25-29 - overweight Aan Alonso PA Onset: 09/08/2018 Counseling about tobacco use Ana Alonso PA Onset: 04/20/2019 Social History Type Date Description Comments Sex Unknown Tobacco Use Start: Unknown current cigarette 1/2 pack daily x smoker 35 years ETOH Use Rarely consumes alcohol Recreational Drug Use Former Drug User Tobacco Use Reviewed: 08/25/18 Patient is a current 1/2 PPD. >35 PY smoker, smokes some history days Smoking Status Reviewed: 04/20/19 Patient is a current 1/2 PPD. >35 PY smoker, smokes some history days Exercise Type/Frequency Exercises rarely Allergies, Adverse Reactions, Alerts Active Allergies Reaction Severity Comments Date Latex 02/06/2017 Inactive Allergies NKDA 09/11/2016 Medications Active Medications SIG Qnty Indications Ordering Provider Date Chantix Starting take 0.5 mg once 53tabs F17.200 Jason Magallon MD 2018 Month Erik daily for the 0.5mg X 11 first 11 days, & 1 mg X 42 Tablets then 1 mg daily for 2 weeks, may increase to 1 mg twice daily. Singulair 1 by mouth every 30tabs Jason Magallon MD 09/18/2018 10mg night. Tablets Bupropion HCL ER 1 twice daily. 60tabs Z72.0 Jason Magallon MD 07/31/2018 (XL) 150mg Tablets ER 24HR Proair HFA inhale two puffs 17units Jason Magallon MD 06/08/2018 by mouth every 4 108(90Base) mcg/Act to 6 hours as Aerosol needed Omeprazole take 1 tablet 30caps K21.9 Jason Magallon MD 01/28/[address] Albuterol Sulfate 1 vial via neb 75ml Jason Magallon MD three times a day 0.63mg/3ML Nebulizer for cough/wheezing. Plaquenil 1 by mouth every Unknown 200mg day Tablets Immunizations CPT Code Status Date Vaccine Lot # [id number] Given 08/28/2017 Influenza Virus Vaccine Quadrivalent Iiv4 [place] [id number] [id number] Given 02/06/2017 Tdap injection [id number] Vital Signs Date Vital Result Comment 04/20/2019 8:11am BP Systolic Sitting Left Arm 114 mmHg BP Diastolic Sitting Left Arm 68 mmHg Heart Rate 79 /min Respiratory Rate 16 /min Height 63 inches 5'3" Weight 173.12 lb BMI (Body Mass Index) 30.7 kg/m2 BSA (Body Surface Area) 1.82 m2 [place] body weight in kilograms 52 kg O2 % BldC Oximetry 98 % Ra 09/08/2018 3:17pm BP Systolic Sitting Left Arm 114 mmHg BP Diastolic Sitting Left Arm 74 mmHg Heart Rate 81 /min Respiratory Rate 16 /min Height 63 inches 5'3" Weight 168.00 lb BMI (Body Mass Index) 29.8 kg/m2 BSA (Body Surface Area) 1.80 m2 [place] body weight in kilograms 52 kg O2 Saturation Level with Exercise 96 % Results Description No Information Available Procedures Date Code Description Status 12/22/2018 48261 [employer] Heart Rhythm Completed Derived Data 04/01/2017 11160902 Mammogram Completed Medical Devices Description No Information Available Encounters Type Date Location Provider Dx Diagnosis Office Visit 04/20/2019 Pulmonology Ana Alonso PA R06.02 Shortness of breath 8:00a K21.9 Gastro-esophageal reflux disease without esophagitis R91.8 Other nonspecific abnormal finding of lung field M32.10 Systemic lupus erythematosus, organ or system involv unsp F17.200 Nicotine dependence, unspecified, uncomplicated Z71.6 Tobacco abuse counseling Assessments Date Code Description Provider 04/20/2019 R06.02 Shortness of breath Ana Alonso PA 04/20/2019 K21.9 Gastro-esophageal reflux disease without Ana Alonso PA esophagitis 04/20/2019 R91.8 Other nonspecific abnormal finding of lung Ana Alonso PA field 04/20/2019 M32.10 Systemic lupus erythematosus, organ or system Ana Alonso PA involvement unspecified 04/20/2019 F17.200 Nicotine dependence, unspecified, uncomplicated Ana Alonso PA 04/20/2019 Z71.6 Tobacco abuse counseling Ana Alonso PA 12/22/2018 R00.2 Palpitations Karina Leon MD 12/22/2018 R00.2 Palpitations TTM Check 12/22/2018 Z95.9 Presence of cardiac and vascular implant and Karina Leon MD graft, unspecified 12/22/2018 Z95.9 Presence of cardiac and vascular implant and TTM Check graft, unspecif Plan of Treatment Future Appointment(s):05/25/2019 9:20 am - Ana Alonso PA at [facility]/ 27/2019 - Ana Alonso PAR06.02 Shortness of breathComments:Based on last testing, you do not have an COPD. Please follow the plan to take omeprazole daily, work on quitting smoking, start exercising to condition your lungs and body to help reduce your shortness of breath. 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 We will wean you off the Symbicort in the future.Follow up:1 month for review of smoking cessation, exercise and weight lossK21.9 Gastro-esophageal reflux disease without esophagitisComments:Continue omeprazole daily and avoid triggers, such as cigarettes and irritating foods such as chocolate, garlic, onion, acidic fruits and tomatoes, soda and coffee.R91.8 Other nonspecific abnormal finding of lung fieldComments:Will review images and need for further monitoring in 08/2019.M32.10 Systemic lupus erythematosus, organ or system involvement [id number] Nicotine dependence, unspecified, uncomplicatedNew Medication:Chantix Starting Month Erik 0.5 mg X 11 & 1 mg X 42 - take 0.5 mg once daily for the first 11 days, then 1 mg daily for 2 weeks, may increase to 1 mg twice daily.Comments:Let's try starting the Chantix to further assist you in quitting smoking. Please call in one month to advance to the continuing doses.Z71.6 Tobacco abuse counseling Goals 04/20/2019 - Ana Alonso PAK21.9 Gastro-esophageal reflux disease without esophagitisTo have GERD symptoms less than twice a week. Functional Status Functional Condition Comment Date Status Independent with all ADL's Active Mental Status Description No Information Available Referrals Description No Information Available
--- OUTSIDE RECORDS SUMMARY | 2019-06-13 19:54 | XMS REPORT ---
:[address] [facility] Address [address] [place] [address] Support Name Relationship Address Phone Marbella Muse Unavailable 160 08/26 [facility] [phone] [place] [address] Scottie Snyder Unavailable Unavailable [phone] Care Team Providers Name Role Phone Kamilah Duarte Unavailable Unavailable PROBLEMS Type Condition ICD9-CM Code DOL88-JA Code Onset Condition SNOMED Code Dates Status Problem Unspecified lump N63.22 Active 184117627 in the left breast, upper inner quadrant Problem Cystocele, N81.12 Active 934282407 lateral Problem Mastodynia N64.4 Active 22840470 Problem Other general R68.89 Active 845636555 symptoms and signs Problem Unspecified R32 Active 295815060 urinary incontinence Problem Disorder of white D72.9 Active 24759412 blood cells, unspecified Problem Galactorrhea O92.6 Active 58396220 Problem Other specified N93.8 Active 624489217 abnormal uterine and vaginal bleeding Problem Other specified N92.5 Active 25194377 irregular menstruation Problem Polyp of corpus N84.0 Active 66402640 uteri ALLERGIES No Information ENCOUNTERS Encounter Location Date Diagnosis [facility] [address], [place]BGYN [place], [place] [id number] [facility] [address] Jan, [place]YN [place] [id number] [facility] [address] Jan, Unspecified urinary OBGYN [facility], incontinence R32 ; Other [place] [id number] specified abnormal uterine and vaginal bleeding N93.8 ; Unspecified lump in the left breast, upper inner quadrant N63.22 and Cystocele, lateral N81.12 [facility] [address] Jan, [place]BGYN [place] [id number] [facility] [address] December, Other specified abnormal OBGYN [facility], uterine and vaginal [place] [id number] bleeding N93.8 ; Polyp of corpus uteri N84.0 and Unspecified lump in the left breast, upper inner quadrant N63.[address] [facility] [address] December, Disorder of white blood OBGYN [facility], cells, unspecified D72.9 [place] [id number] and Other general symptoms and signs R68.[address] [facility] [address] December, Other specified abnormal OBGYN [facility], uterine and vaginal [place] [id number] bleeding N93.8 ; Galactorrhea O92.6 ; Mastodynia N64.4 and Unspecified lump in the left breast, upper inner quadrant N63.[address] [facility] [address] December, OBGYN [place], [place] [id number] [facility] [address] December, OBGYN [place] [id number] [facility] [address] December, Other specified abnormal OBGYN [facility], uterine and vaginal [place] [id number] bleeding N93.8 ; Galactorrhea O92.6 ; Mastodynia N64.4 and Unspecified lump in the left breast, upper inner quadrant N63.22 [facility] [address] Nov, OBGYN [place] [id number] [facility] [address] Nov, Unspecified urinary OBGYN [facility], incontinence R32 ; Other [place] [id number] specified abnormal uterine and vaginal bleeding N93.8 and Cystocele, lateral N81.12 [place] [facility] 103 Nov, Other specified abnormal OBGYN [facility], uterine and vaginal [place] [id number] bleeding N93.8 and Other specified irregular menstruation N92.5 [place] [facility] [address] 15 Nov, 2018 Unspecified urinary [facility], incontinence R32 [place] [id number] [place] [facility] [address] Nov, [place] [id number] [facility] [address] Oct, Encounter for screening O[facility], for malignant neoplasm of [place] [id number] cervix Z12.4 ; Unspecified urinary incontinence R32 ; Other specified abnormal uterine and vaginal bleeding N93.8 ; Galactorrhea O92.6 ; Mastodynia N64.4 ; Unspecified lump in the left breast, upper inner quadrant N63.22 and Cystocele, lateral N81.[address] [facility] [address] December, OBGYN [place] [id number] [facility] 103 December, Dysuria R30.0 ; OBGYN [facility], Unspecified urinary [place] [id number] incontinence R32 ; Cystocele, unspecified N81.10 and Other specified irregular menstruation N92.[address] [facility] [address] Feb, OBGYN [place], [place] [id number] 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 OBGYN [facility], V72.31 ; SCREEN MAMMOGRAM [place] [id number] NEC V76.12 ; CONTRACEPTIVE MANGMT NOS V25.9 and HEMATURIA NOS 599.70 IMMUNIZATIONS No Known Immunizations SOCIAL HISTORY Never Assessed REASON FOR REFERRAL FUNCTIONAL STATUS PLAN OF CARE VITAL SIGNS MEDICATIONS Unknown Medications PROCEDURES No Known procedures RESULTS No Results REASON FOR VISIT Insurance Providers [facility] Patient Patient Patient Patient Patient Subscriber Subscriber Subscriber Group Insurance Plan Plan Plan Plan ID Relationship Address Phone Name Date of ID Name Date of No Type Insurance Insurance Insurance Coverage to Subscriber Address Phone Name Dates Arpita LEVON Ware [phone] [place] [employer] [id number] Plan for [address] [place] [address] [facility] [employer] [id number] MEDICAL (GENERAL) HISTORY Type Description Date Medical History h/o cysts on ovaries Medical History anxiety Medical History depression Medical History lupus Medical History hx of Hep C Medical History granules in lungs? Medical History asthma Surgical History tonsillectomy 1977 Surgical History tubal ligation 1995 Surgical History wisdom teeth extraction 1996 Hospitalization History see above Hospitalization History childbirth x 3
--- OUTSIDE RECORDS SUMMARY | 2019-06-13 19:54 | XMS REPORT | Continuity of Care Document ---
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 Paroxysmal supraventricular MishraYusra robison, REMA, Onset: 09/11/2016 tachycardia HOSPITAL PHARMACY TECHNICIAN Atherosclerotic heart disease of MishraYusra davis, REMA, 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 >35 [...] may increase to 1 mg twice daily. Proair HFA inhale two puffs 17units Jason [...] CPT Code Status Date Vaccine Lot # [id number] Given 08/28/2017 Influenza Virus Vaccine Quadrivalent Iiv4 [place] [id number] [id number] Given 02/06/2017 Tdap injection [id number] Vital Signs Date Vital Result Comment 06/10/2019 7:42am BP Systolic Sitting Left Arm 124 mmHg BP Diastolic Sitting Left Arm 86 mmHg Heart Rate 94 /min Respiratory Rate 16 /min Height 63 inches 5'3" Weight 172.00 lb BMI (Body Mass Index) 30.5 kg/m2 BSA (Body Surface Area) 1.81 m2 Garvin body weight in kilograms 52 kg O2 Saturation Level with Exercise 96 % 05/25/2019 9:16am BP Systolic Sitting Left Arm 107 mmHg BP Diastolic Sitting Left Arm 82 mmHg Heart Rate 96 /min Respiratory Rate 16 /min Height 63 inches 5'3" Weight 170.00 lb BMI (Body Mass Index) 30.1 kg/m2 BSA (Body Surface Area) 1.80 m2 Garvin body weight in kilograms 52 kg O2 % BldC Oximetry 98 % ra Results Test Date Facility Test Result H/L Range Note Comprehensive 06/10/2019 [facility] Glucose 114 mg/dL High 74-106 1 Metabolic Panel [address] [place], [place] [id number] [phone] BUN 15 mg/dL Normal 7-18 Creatinine 0.9 mg/dL Normal 0.6-1.3 Glom Filtration Rate, Estimate >60 mL/min >60 If >60 mL/min >60 2 BUN/Creat 16.6 ratio Sodium 138 mmol/L Normal 136-145 Potassium 3.7 mmol/L Normal 3.5-5.1 Chloride 109 mmol/L High 98-107 Carbon Dioxide 25 mmol/L Normal 21-32 Anion Gap 4 mEq/L Low 8-16 Calcium 8.9 mg/dL Normal 8.5-10.1 Total Protein 7.2 g/dL Normal 6.4-8.2 Albumin 4.0 g/dL Normal 3.4-5.0 Globulin 3.2 g/dL Normal 1.9-4.3 Alb/Glob 1.3 ratio Bilirubin,Total 0.3 mg/dL Normal 0.2-1.0 Sgot/Ast 16 U/L Normal 15-37 SGPT/Alt 26 U/L Normal 12-78 Alkaline Phosphatase 65 U/L Normal 45-117 Reflex add FT3? Y Reflex add FT4? Y Magnesium 06/10/2019 [facility] Magnesium 2.0 mg/dL Normal 1.8-2.4 [address] [place] [address] [phone] Reflex add FT3? Y Reflex add FT4? Y TSH Reflex 06/10/2019 [facility] Thyroid Stim 1.11 uIU/mL Normal 0.30-4.20 FT4 And/Or [address] Hormone FT[address] [place] [address] [phone] Reflex add FT3? Y Reflex add FT4? Y LDL Cholesterol 06/10/2019 [facility] Cholesterol 251 mg/dL High <200 3 Profile [address] [place] [address] [phone] Triglycerides 189 mg/dL High <150 4 HDL Cholesterol 37 mg/dL Low >40 5 LDL-Cholesterol 176 mg/dL < 100 6 Reflex add FT3? Y Reflex add FT4? Y 1 I49.3 Z82.49 2 Note: Persistent reduction for 3 months or more in an eGFR <60 mL/min/1.73 m2 defines CKD. Patients with eGFR values >/=60 mL/min/1.73 m2 may also have CKD if evidence of persistent proteinuria is present. The original MDRD equation for estimated GFR is not valid for patients less than 18 years of age. Additional information may be found at www.kdoqi.org. 3 Reference Guidelines*: Desirable: ........... < 200 mg/dL Borderline High: ..... 200-239 mg/dL High: ................ >= 240 mg/dL * The National Cholesterol Education Program (NCEP) 4 Reference Guidelines*: Normal: ............. < 150 mg/dL Borderline High: .... 150-199 mg/dL High: ............... 200-499 mg/dL Very High: .......... > 500 mg/dL * Source: National Cholesterol Education Program (NCEP) 5 Reference Guidelines*: Low HDL: ..... < 40 mg/dL Normal: ..... 40-60 mg/dL Desirable: ... > 60 mg/dL *The National Cholesterol Education Program(NCEP) 6 Reference Guidelines*: Optimal:........... <100 mg/dL Near Optimal....... 100-129 mg/dL Borderline High.... 130-159 mg/dL High............... 160-189 mg/dL Very High.......... >=190 mg/dL * Source: National Cholesterol Education Program (NCEP) Procedures Date Code Description Status 06/10/2019 53329 EKG-Tracing And Report Completed 12/22/2018 15125 Implantable Loop [employer] Heart Rhythm Completed Derived Data 04/01/2017 11575570 Mammogram Completed Medical Devices Description No Information Available Encounters Type Date Location Provider Dx Diagnosis Office Visit 06/10/2019 Cardiology Office Angelika López I49.3 Ventricular premature 7:40a B., PA depolarization I47.1 Supraventricular tachycardia Z95.9 Presence of cardiac and vascular implant and graft, unsp Z82.49 Family hx of ischem heart dis and oth dis of the circ sys F17.200 Nicotine dependence, unspecified, uncomplicated Office Visit 05/25/2019 9:20a Pulmonology Ana Alonso, R06.02 Shortness of PA breath F17.200 Nicotine dependence, unspecified, uncomplicated R00.2 Palpitations R91.8 Other nonspecific abnormal finding of lung field Z71.6 Tobacco abuse counseling Office Visit 04/20/2019 8:00a Pulmonology Ana Alonso, R06.02 Shortness of PA breath K21.9 Gastro-esophageal reflux disease without esophagitis R91.8 Other nonspecific abnormal finding of lung field M32.10 Systemic lupus erythematosus, organ or system involv unsp F17.200 Nicotine dependence, unspecified, uncomplicated Z71.6 Tobacco abuse counseling Assessments Date Code Description Provider 06/10/2019 I49.3 Ventricular premature depolarization Angelika López, PA 06/10/2019 I47.1 Supraventricular tachycardia Angelika López, PA 06/10/2019 Z95.9 Presence of cardiac and vascular implant Angelika López , PA and graft, unspecified 06/10/2019 Z82.49 Family history of ischemic heart disease Angelika López, PA and other diseases of the circulatory system 06/10/2019 F17.200 Nicotine dependence, unspecified, Angelika López, PA uncomplicated 05/25/2019 R06.02 Shortness of breath Ana Alonso PA 05/25/2019 F17.200 Nicotine dependence, unspecified, Ana Alonso, PA uncomplicated 05/25/2019 R00.2 Palpitations Ana Alonso PA 05/25/2019 R91.8 Other nonspecific abnormal finding of lung Ana Alonso PA field 05/25/2019 Z71.6 Counseling about tobacco use Ana Alonso PA 04/20/2019 R06.02 Shortness of breath Ana Alonso PA 04/20/2019 K21.9 Gastro-esophageal reflux disease without Ana Alonso PA esophagitis 04/20/2019 R91.8 Other nonspecific abnormal finding of lung Ana Alonso PA field 04/20/2019 M32.10 Systemic lupus erythematosus, organ or Ana Alonso PA system involvement unspecified 04/20/2019 F17.200 Nicotine dependence, unspecified, Ana Alonso PA uncomplicated 04/20/2019 Z71.6 Tobacco abuse counseling Ana Alonso PA 12/22/2018 R00.2 Palpitations Karina Leon MD 12/22/2018 R00.2 Palpitations TTM Check 12/22/2018 Z95.9 Presence of cardiac and vascular implant Karina Leon MD and graft, unspecified 12/22/2018 Z95.9 Presence of cardiac and vascular implant TTM Check and graft, unspecif Plan of Treatment Future Appointment(s):12/14/2019 1:20 pm - Abdirahman Carreno M.D., FACC at Cardiology [id number]/10/2019 - Angelika López, PAI49.3 Ventricular premature depolarizationComments:Will obtain updated labs. Reassurance provided. Advised to cut back on caffeine intake and stay wellhydrated.I47.1 Supraventricular tachycardiaComments:Monitor.Z95.9 Presence of cardiac and vascular implant and graft, unspecifiedNew Orders:Loop Recorder Removal, Ordered: 06/10/19Comments: Will schedule explant.Z82.49 Family history of ischemic heart disease and other diseases of the circulatory systemComments:Will check lipid profile.F17.200 Nicotine dependence, unspecified, uncomplicatedComments:Encouraged to use Chantix previously prescribed.AllFollow up:6 months Functional Status Functional Condition Comment Date Status Independent with all ADL's Active Mental Status Description No Information Available Referrals Description No Information Available
[2019-06-13 19:59] VITALS: BP 110/76
[2019-06-13] MEDS ORDERED: Albuterol 2.5 MG/3 ML NEB.SOL* (0.083%) INH ONE (20:14)
[2019-06-13] MEDS ORDERED: Ipratropium 0.5MG/2.5ML NEB* 0.5 MG/2.5 ML NEB.SOLN INH ONE (20:14)
[2019-06-13] MEDS ORDERED: predniSONE TAB* 20 MG PO ONE (20:14)
--- NOTE | 2019-06-13 20:23 | UC ---
Respiratory Complaint HPI - HPI Summary HPI Summary: 48 yo smoker with asthma present with 2-3 day hx of nasal congestion and cough CORTEZ has been using rescue inhaler no CP orSOB no f/c - History of Current Complaint Chief Complaint: UCGeneralIllness Stated Complaint: COUGH WHEEZING CONGESTION Time Seen by Provider: 06/13/19 20:07 Hx Obtained From: Patient Hx Last Menstrual Period: 06/02/19 Onset/Duration: Gradual Onset, Lasting Days Timing: Constant Severity Initially: Mild Severity Currently: Moderate Pain Intensity: 6 - CORTEZ with cough Pain Scale Used: 0-10 Numeric Character: Cough: Nonproductive Aggravating Factors: Exertion, Deep Breaths Alleviating Factors: Bronchodilator Associated Signs And Symptoms: Positive: Wheezing, Nasal Congestion, Sinus Discomfort Related History: Similar Episode/Dx as: - bronchitis - Allergies/Home Medications Allergies/Adverse Reactions: Allergies Allergy/AdvReac Type Severity Reaction Status Date / Time latex Allergy Intermediate burning Verified 06/13/19 19:59 sensation PMH/Surg Hx/FS Hx/Imm Hx Previously Healthy: Yes Respiratory History: Asthma, Bronchitis, Pneumonia Other History Of: Hepatitis C - Surgical History Surgical History: Yes Surgery Procedure, Year, and Place: Tubal Ligation, 1995, [place] - Tonsillectomy, s - Family History Known Family History: Positive: Cardiac Disease, Hypertension, Respiratory Disease - Social History Alcohol Use: Occasionally Substance Use Type: None Smoking Status (MU): Former Smoker Type: eCigarettes Amount Used/How Often: daily usage Length of Time of Smoking/Using Tobacco: 1/2 - 1 PPD x 35 Years Have You Smoked in the Last Year: Yes When Did the Patient Quit Smoking/Using Tobacco: 08/2018 Household Exposure Type: Cigarettes - Immunization History Most Recent Influenza Vaccination: no Review of Systems All Other Systems Reviewed And Are Negative: Yes Constitutional: Positive: Negative Skin: Positive: Negative Eyes: Positive: Negative ENT: Positive: Nasal Discharge Respiratory: Positive: Cough, Other - wheezing Cardiovascular: Positive: Negative Gastrointestinal: Positive: Negative Genitourinary: Positive: Negative Motor: Positive: Negative Neurovascular: Positive: Negative Musculoskeletal: Positive: Negative Neurological: Positive: Negative Psychological: Positive: Negative Physical Exam Vital Signs: Initial Vital Signs Temp 97.9 F 06/13/19 19:56 Pulse 90 06/13/19 19:56 Resp 16 06/13/19 19:56 BP 110/76 06/13/19 19:56 Pulse Ox 97 06/13/19 19:56 Re-Evaluation - Re-Evaluation First Eval Re-Evaluation Time: 20:47 Change: Improved - still wheezing but much better air movement, no rales Respiratory Course/Dx - Differential Dx/Diagnosis Provider Diagnosis: Acute viral bronchiolitis Discharge ED - Sign-Out/Discharge Documenting (check all that apply): Patient Departure All imaging exams completed and their final reports reviewed: No Studies - Discharge Plan Condition: Stable Disposition: HOME Prescriptions: predniSONE TAB* [Deltasone 20 MG TAB*] 40 mg PO DAILY #8 tab Patient Education Materials: Bronchospasm (ED) Forms: *Work Release Referrals: Maria De Jesus Reddy NP [Primary Care Provider] - 4 Days (if not completely better) Additional Instructions: continue current meds as directed - Billing Disposition and Condition Condition: STABLE Disposition: Home
== END 2019-06-13 20:56 | disposition home or self-care (01) ==
LOC: UCCORT 19:24
DX: J21.8 Acute bronchiolitis due to other specified organisms (principal); J45.909 Unspecified asthma, uncomplicated; Z91.040 Latex allergy status; Z87.891 Personal history of nicotine dependence
CPT/HCPCS: 99212; G0463; J7512

== ENCOUNTER 2019-07-31 08:08 | Emergency (ER) | payer BC ==
[2019-07-31 08:32] VITALS: BP 121/67
--- NOTE | 2019-07-31 09:03 | UC ---
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 Has been doing nebulizer with albuterol and feels like it's not working. " -she has standard lung disease but not sure what it is. states that she has granulomartous disease and damage from smoking but insists that it is not COPD or asthma. follows w/ pulm. she was on symbicort 160, then weaned down to 80 and recently stopped. she reporst 2 exacerbations in past 2 montsh since weaning and stopping. says thats eh suses the symbicort every onece and a while but not in past week since the most recent sx started. -denies f/c. last used neb last night. requetss OOW note. has had many CTs and xrays in her lifetime. has had prednisone in past and tolerates well. - History of Current Complaint Chief Complaint: UCRespiratory Stated Complaint: WHEEZY COUGH Time Seen by Provider: 07/31/19 08:49 Hx Last Menstrual Period: 2 weeks ago Pain Intensity: 0 - Allergies/Home Medications Allergies/Adverse Reactions: Allergies Allergy/AdvReac Type Severity Reaction Status Date / Time latex Allergy Intermediate burning Verified 07/31/19 08:32 sensation PMH/Surg Hx/FS Hx/Imm Hx Previously Healthy: Yes Respiratory History: Other - granulomatous disease Other History Of: Hepatitis C - Surgical History Surgical History: Yes Surgery Procedure, Year, and Place: Tubal Ligation, 1995, [place] - Tonsillectomy, 1969's - Family History Known Family History: Positive: Cardiac Disease, Hypertension, Respiratory Disease - Social History Alcohol Use: Occasionally Substance Use Type: None Smoking Status (MU): Former Smoker Type: eCigarettes Amount Used/How Often: daily usage Length of Time of Smoking/Using Tobacco: 1/2 - 1 PPD x 35 Years Have You Smoked in the Last Year: Yes When Did the Patient Quit Smoking/Using Tobacco: 08/2018 Household Exposure Type: Cigarettes - Immunization History Most Recent Influenza Vaccination: no Review of Systems All Other Systems Reviewed And Are Negative: Yes Constitutional: Positive: Fatigue. Negative: Fever Skin: Positive: Negative Eyes: Positive: Negative ENT: Positive: Nasal Discharge. Negative: Sore Throat, Ear Ache Respiratory: Positive: Cough. Negative: Shortness Of Breath Cardiovascular: Positive: Negative. Negative: Chest Pain Gastrointestinal: Positive: Negative Genitourinary: Positive: Negative Motor: Positive: Negative Neurovascular: Positive: Negative Musculoskeletal: Positive: Negative Neurological: Positive: Negative Psychological: Positive: Negative Is Patient Immunocompromised?: No Physical Exam Triage Information Reviewed: Yes Appearance: Ill-Appearing - mildly ill. speaks full sentences comofrtably. Vital Signs: Initial Vital Signs Temp 97.3 F 07/31/19 08:29 Pulse 90 07/31/19 08:29 Resp 20 07/31/19 08:29 BP 121/67 07/31/19 08:29 Pulse Ox 98 07/31/19 08:29 Eye Exam: Normal ENT Exam: Normal ENT: Positive: Pharynx normal, TMs normal Neck exam: Normal Neck: Positive: Supple, Nontender, No Lymphadenopathy Respiratory: Positive: No respiratory distress, No accessory muscle use, Decreased breath sounds - mild-mod, Wheezing - b/l exp wheezing throughout. no areas of consolidation Cardiovascular Exam: Normal Cardiovascular: Positive: RRR Abdominal Exam: Normal Abdomen Description: Positive: Nontender, Soft Musculoskeletal Exam: Normal Neurological Exam: Normal Psychological Exam: Normal Skin Exam: Normal Skin: Negative: Rashes Respiratory Course/Dx - Course Course Of Treatment: Granulomatous disease/? COPD. smoker with I suspect COPD exacerbation. no e/o pneumonia at this time, doesnt feel like it to her. treat w/ pred 40mgs x 5 days. restart symbicort and f/u with pulm. use neb q4-6 hrs. -go to ER if sx increase or persist w/o improvement. may need CXR at that point but we agreed to minimize radiatione xposure at this time w/o clear evidence of bactreial infection - Differential Dx/Diagnosis Differential Diagnosis/HQI/PQRI: Bronchitis, Exacerbation Of COPD, Lower Resp Infection Provider Diagnosis: Bronchitis Discharge ED - Sign-Out/Discharge Documenting (check all that apply): Patient Departure All imaging exams completed and their final reports reviewed: No Studies - Discharge Plan Condition: Stable Disposition: HOME Prescriptions: predniSONE [Prednisone 20 MG TAB] 40 mg PO DAILY #10 tablet Patient Education Materials: Acute Bronchitis (ED) Forms: *Work Release Referrals: Maria De Jesus Reddy NP [Primary Care Provider] - Additional Instructions: You shoulde be aware of the potential side effects of prednisone including but not limited to increased energy/decreased sleep, stomach upset, irritability, hunger, elevated blood sugars and blood pressures, problems with your adrenal glands and cut off of the blood supply going to your hip. The latter symptoms are more typical of supervisory civil engineer or frequent use of steroids. -You should restart the symbicort at 80 mcg 2 puffs 2x/day until you follow up with the operations staff specialist security this week. You should go to the ER if your symptoms worsen or persist, or you develop fever or chills. Use the nebulizer every 4-6 hrs while sick - Billing Disposition and Condition Condition: STABLE Disposition: Home
== END 2019-07-31 09:25 | disposition home or self-care (01) ==
LOC: UCCORT 08:08
DX: J40 Bronchitis, not specified as acute or chronic (principal); D71 Functional disorders of polymorphonuclear neutrophils; Z91.040 Latex allergy status; Z87.891 Personal history of nicotine dependence
CPT/HCPCS: 99212; G0463

== ENCOUNTER 2019-10-02 08:05 | Emergency (ER) | payer BC ==
--- OUTSIDE RECORDS SUMMARY | 2019-10-02 08:23 | XMS REPORT ---
:1970 Author Organization [facility] Address [address] 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 Active 97592846 uterus, unspecified Problem Cystocele, N81.12 Active 404871197 lateral Problem Other abnormal R92.8 Active 080597780 and inconclusive findings on diagnostic imaging of breast Problem Mastodynia N64.4 Active 80270483 Problem Polyp of corpus N84.0 Active 23362160 uteri Problem Disorder of D72.9 Active 44843476 white blood cells, unspecified Problem Other general R68.89 Active 455977164 symptoms and signs Problem Other ovarian N83.292 Active [id number] cyst, left side ALLERGIES No Information ENCOUNTERS Encounter Location Date Diagnosis [facility] [address] Jul, OBGYN [place], [place] [id number] [facility] 103 Jun, Other ovarian cyst, left OBGYN [facility], side N83.292 ; Leiomyoma [place] [address] of uterus, unspecified D25.9 ; Other specified irregular menstruation N92.5 and Other abnormal and inconclusive findings on diagnostic imaging of breast R92.8 [facility] 103 Jun, Other ovarian cyst, left OBGYN [facility], side N83.292 [place] [id number] [facility] [address] Jun, [place]BGYN [place] [id number] [facility] [address] May, [place]BGYN [place] [id number] [facility] 103 May, [place]BGYN [place] [id number] [facility] 103 Mar, [place]BGYN [place] [id number] [facility] 103 Jan, OBGYN [place], [place] [id number] [facility] 103 Jan, Unspecified urinary OBGYN [facility], incontinence R32 ; Other [place] [id number] specified abnormal uterine and vaginal bleeding N93.8 ; Unspecified lump in the left breast, upper inner quadrant N63.22 and Cystocele, lateral N81.12 [facility] 103 Jan, [place]BGYN [place] [id number] [facility] 103 December, Other specified abnormal OBGYN [facility], uterine and vaginal [place] [id number] bleeding N93.8 ; Polyp of corpus uteri N84.0 and Unspecified lump in the left breast, upper inner quadrant N63.22 [facility] 103 December, Disorder of white blood OBGYN [facility], cells, unspecified D72.9 [place] [id number] and Other general symptoms and signs R68.89 [facility] 103 December, Other specified abnormal OBGYN [facility], uterine and vaginal [place] [id number] bleeding N93.8 ; Galactorrhea O92.6 ; Mastodynia N64.4 and Unspecified lump in the left breast, upper inner quadrant N63.22 [facility] 103 December, [place]BGYN [place] [id number] [facility] 103 December, [place]BGYN [place] [id number] [facility] 103 December, Other specified abnormal OBGYN [facility], uterine and vaginal [place] [id number] bleeding N93.8 ; Galactorrhea O92.6 ; Mastodynia N64.4 and Unspecified lump in the left breast, upper inner quadrant N63.22 [facility] 103 Nov, OBGYN [place] [id number] [facility] 103 Nov, Unspecified urinary OBGYN [facility], incontinence R32 ; Other [place] [id number] specified abnormal uterine and vaginal bleeding N93.8 and Cystocele, lateral N81.12 [facility] 103 Nov, Other specified abnormal OBGYN [facility], uterine and vaginal [place] [id number] bleeding N93.8 and Other specified irregular menstruation N92.5 [facility] 103 Nov, Unspecified urinary OBGYN [facility], incontinence R32 [place] [id number] [facility] 103 Nov, [place] [id number] [facility] 103 Oct, Encounter for screening OBGYN [facility], for malignant neoplasm of [place] [id number] cervix Z12.4 ; Unspecified urinary incontinence R32 ; Other specified abnormal uterine and vaginal bleeding N93.8 ; Galactorrhea O92.6 ; Mastodynia N64.4 ; Unspecified lump in the left breast, upper inner quadrant N63.22 and Cystocele, lateral N81.12 [facility] 103 December, OBGYN [place], [place] [id number] [facility] 103 December, Dysuria R30.0 ; OBGYN 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, V72.31 ; SCREEN MAMMOGRAM W[place] [id number] NEC V76.12 ; CONTRACEPTIVE MANGMT NOS V25.9 and HEMATURIA NOS 599.70 IMMUNIZATIONS No Known Immunizations SOCIAL HISTORY Never Assessed REASON FOR REFERRAL FUNCTIONAL STATUS PLAN OF CARE VITAL SIGNS MEDICATIONS No Known Medications PROCEDURES No Known procedures RESULTS No Results REASON FOR VISIT June 2019 Insurance Providers [facility] Member Patient Patient Patient Patient Patient Subscriber Subscriber Subscriber Group Insurance Plan Plan Plan Plan ID Relationship Address Phone Name Date of ID Name Date of No Type Insurance Insurance Insurance Coverage to Subscriber Address Phone Name Dates [place] [phone] [place] self [place] [id number] Plan for 1600 [facility] [employer] [employer] [place] [employer] [phone] MEDICAL (GENERAL) HISTORY Type Description Date Medical History h/o cysts on ovaries Medical History anxiety Medical History depression Medical History lupus Medical History hx of Hep C Medical History granules in lungs? Medical History asthma Surgical History tonsillectomy 1977 Surgical History tubal ligation 1995 Surgical History wisdom teeth extraction 1996 Surgical History hysteroscopy, D & C Hospitalization History see above Hospitalization History childbirth x 3
--- OUTSIDE RECORDS SUMMARY | 2019-10-02 08:23 | XMS REPORT ---
:1970 Author Name Libia Johnson Address [address] [place] [address] Care Team Providers Name Role Phone Libia Johnson Unavailable Unavailable PROBLEMS Type Condition ICD9-CM IGP14-OM Onset Condition SNOMED Code Code Code Dates Status Problem Unspecified lump N63.22 Active 126999239 in the left breast, upper inner quadrant Problem Unspecified R32 Active 321968723 urinary incontinence Problem Galactorrhea O92.6 Active 79757424 Problem Other specified N93.8 Active 895951858 abnormal uterine and vaginal bleeding Problem Other specified N92.5 Active 72926573 irregular menstruation Problem Leiomyoma of D25.9 Active 97093434 uterus, unspecified Problem Cystocele, N81.12 Active 769490743 lateral Problem Other abnormal R92.8 Active 406975363 and inconclusive findings on diagnostic imaging of breast Problem Mastodynia N64.4 Active 84853731 Problem Polyp of corpus N84.0 Active 84649825 uteri Problem Disorder of D72.9 Active 85649686 white blood cells, unspecified Problem Other general R68.89 Active 731932626 symptoms and signs Problem Other ovarian N83.292 Active 55513889636574326 cyst, left side ALLERGIES No Known Allergies ENCOUNTERS Encounter Location Date Diagnosis [facility] 103 Jul, OBGYN [place], [place] [id number] [facility] 103 Jun, Other ovarian cyst, left OBGYN [facility], side N83.292 ; Leiomyoma [place] [id number] of uterus, unspecified D25.9 ; Other specified irregular menstruation N92.5 and Other abnormal and inconclusive findings on diagnostic imaging of breast R92.8 [facility] 103 Jun, Other ovarian cyst, left OBGYN [facility], side N83.[id number] [facility] Jun, [place] [id number] [facility] 103 May, [place] [id number] [facility] 103 May, [place] [id number] [facility] [address] Mar, [place] [id number] [facility] Jan, [place] [id number] [facility] 103 Jan, Unspecified urinary OBGYN [facility], incontinence R32 ; Other [place] [id number] specified abnormal uterine and vaginal bleeding N93.8 ; Unspecified lump in the left breast, upper inner quadrant N63.22 and Cystocele, lateral N81.12 [facility] 103 Jan, [place] [id number] [facility] 103 December, Other specified abnormal OBGYN [facility], uterine and vaginal [place] [id number] bleeding N93.8 ; Polyp of corpus uteri N84.0 and Unspecified lump in the left breast, upper inner quadrant N63.22 [facility] 103 December, Disorder of white blood OBGYN [facility], cells, unspecified D72.9 [place] [id number] and Other general symptoms and signs R68.89 [facility] 103 December, Other specified abnormal OBGYN [facility], uterine and vaginal [place] [id number] bleeding N93.8 ; Galactorrhea O92.6 ; Mastodynia N64.4 and Unspecified lump in the left breast, upper inner quadrant N63.22 [facility] 103 December, [place] [id number] [facility] 103 December, [place] [id number] [facility] 103 December, Other specified abnormal OBGYN [facility], uterine and vaginal [place] [id number] bleeding N93.8 ; Galactorrhea O92.6 ; Mastodynia N64.4 and Unspecified lump in the left breast, upper inner quadrant N63.22 [facility] 103 Nov, [place] [id number] [facility] Nov, Unspecified urinary OBGYN [facility], incontinence R32 ; Other [place] [id number] specified abnormal uterine and vaginal bleeding N93.8 and Cystocele, lateral N81.12 [facility] 103 Nov, Other specified abnormal OBGYN [facility], uterine and vaginal [place] [id number] bleeding N93.8 and Other specified irregular menstruation N92.5 [facility] 103 Nov, Unspecified urinary OBGYN [facility], incontinence R32 [place] [id number] [facility] 103 Nov, [place]BG[place] [id number] [facility] 103 Oct, Encounter for screening OBGYN [facility], for malignant neoplasm of [place] [id number] cervix Z12.4 ; Unspecified urinary incontinence R32 ; Other specified abnormal uterine and vaginal bleeding N93.8 ; Galactorrhea O92.6 ; Mastodynia N64.4 ; Unspecified lump in the left breast, upper inner quadrant N63.22 and Cystocele, lateral N81.12 [facility] 103 December, OBG[place], [place] [id number] [facility] 103 December, Dysuria R30.0 ; OBGYN [facility], Unspecified urinary [place] [id number] incontinence R32 ; Cystocele, unspecified N81.10 and Other specified irregular menstruation N92.5 [facility] 103 Feb, [place]BG[place], [place] [id number] [facility] 103 Feb, 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 OBN [facility], V72.31 ; SCREEN MAMMOGRAM [place] [id number] NEC V76.12 ; CONTRACEPTIVE MANGMT NOS V25.9 and HEMATURIA NOS 599.70 IMMUNIZATIONS No Known Immunizations SOCIAL HISTORY Never Assessed REASON FOR REFERRAL FUNCTIONAL STATUS PLAN OF CARE Activity Details Follow Up pt will schedule annual another day Reason: VITAL SIGNS Height 63 in 2019-07-12 Weight 178 lbs 2019-07-12 BMI 31.53 kg/m2 2019-07-12 Blood pressure systolic 110 mm Hg 2019-07-12 Blood pressure diastolic 80 mm Hg 2019-07-12 MEDICATIONS Medication Instructions Dosage Frequency Start End Date Duration Status Date Plaquenil 200 orally once a 1 tab(s) 24h 30 day(s) Active mg day Lipitor 10 mg orally once a 1 tab(s) 24h 30 day(s) Active day albuterol CFC inhaled PRN 2 puff(s) Active free 90 mcg/inh Nexium 40 mg orally once a 1 cap(s) 24h Active day PROCEDURES No Known procedures RESULTS No Results REASON FOR VISIT f/u US Insurance Providers [facility] Health Member Patient Patient Patient Patient Patient Subscriber Subscriber Subscriber Group Insurance Plan Plan Plan Plan ID Relationship Address Phone Name Date of ID Name Date of No Type Insurance Insurance Insurance Coverage to Subscriber Address Phone Name Dates Arpita LEVON [address] [phone] [place] [id number] Plan for 1600 20 Plan for appweevr [place] [employer] [facility] [employer] [place] [employer] [place] [employer] [id number] MEDICAL (GENERAL) HISTORY Type Description Date Medical History h/o cysts on ovaries Medical History anxiety Medical History depression Medical History lupus Medical History hx of Hep C Medical History granules in lungs? Medical History asthma Surgical History tonsillectomy 1977 Surgical History tubal ligation 1995 Surgical History wisdom teeth extraction 1996 Surgical History hysteroscopy, D & C -2018 Hospitalization History see above Hospitalization History childbirth x 3
--- OUTSIDE RECORDS SUMMARY | 2019-10-02 08:23 | XMS REPORT ---
:1970 Author Organization [facility] Address [address] [place] [address] Care Team Providers Name Role Phone Kamilah Duarte Unavailable Unavailable PROBLEMS Type Condition ICD9-CM XWF59-GP Onset Condition SNOMED Code Code Code Dates Status Problem Unspecified lump N63.22 Active 031246812 in the left breast, upper inner quadrant Problem Unspecified R32 Active 846252920 urinary incontinence Problem Galactorrhea O92.6 Active 03550339 Problem Other specified N93.8 Active 631512847 abnormal uterine and vaginal bleeding Problem Other specified N92.5 Active 66547234 irregular menstruation Problem Leiomyoma of D25.9 Active 23465976 uterus, unspecified Problem Cystocele, N81.12 Active 259237087 lateral Problem Other abnormal R92.8 Active 138701080 and inconclusive findings on diagnostic imaging of breast Problem Mastodynia N64.4 Active 12443492 Problem Polyp of corpus N84.0 Active 79569643 uteri Problem Disorder of D72.9 Active 97669180 white blood cells, unspecified Problem Other general R68.89 Active 640675063 symptoms and signs Problem Other ovarian N83.292 Active 10570807908652333 cyst, left side ALLERGIES No Information ENCOUNTERS Encounter Location Date Diagnosis [facility] 103 Jul, OBGYN [place], [place] [id number] [facility] 103 Jun, Other ovarian cyst, left OBGYN [facility], side N83.292 ; Leiomyoma [place] [id number] of uterus, unspecified D25.9 ; Other specified irregular menstruation N92.5 and Other abnormal and inconclusive findings on diagnostic imaging of breast R92.8 [facility] 103 Jun, Other ovarian cyst, left OBGYN [facility], side N83.292 [place] [id number] [facility] 103 Jun, [place]BGYN [place], [place] [id number] [facility] 103 May, [place] [id number] [facility] 103 May, [place]BGYN [place], [place] [id number] [facility] 103 Mar, [place]YN [place] [id number] [facility] 103 Jan, [place]BG[place] [id number] [facility] 103 Jan, Unspecified urinary OBGYN [facility], incontinence R32 ; Other [place] [id number] specified abnormal uterine and vaginal bleeding N93.8 ; Unspecified lump in the left breast, upper inner quadrant N63.22 and Cystocele, lateral N81.12 [facility] 103 Jan, [place], [place] [id number] [facility] 103 December, Other specified abnormal OBGYN [facility], uterine and vaginal [place] [id number] bleeding N93.8 ; Polyp of corpus uteri N84.0 and Unspecified lump in the left breast, upper inner quadrant N63.22 [facility] 103 December, Disorder of white blood OBGYN [facility], cells, unspecified D72.9 [place] [id number] and Other general symptoms and signs R68.89 [facility] 103 December, Other specified abnormal OBGYN [facility], uterine and vaginal [place] [id number] bleeding N93.8 ; Galactorrhea O92.6 ; Mastodynia N64.4 and Unspecified lump in the left breast, upper inner quadrant N63.22 [facility] 103 December, [place]BGYN [place] [id number] [facility] 103 December, [place]BG[place] [id number] [facility] 103 December, Other specified abnormal OBGYN [facility], uterine and vaginal [place] [id number] bleeding N93.8 ; Galactorrhea O92.6 ; Mastodynia N64.4 and Unspecified lump in the left breast, upper inner quadrant N63.22 [facility] 103 Nov, [place]BG[place], [place] [id number] [facility] 103 Nov, Unspecified urinary OBGYN [facility], incontinence R32 ; Other [place] [id number] specified abnormal uterine and vaginal bleeding N93.8 and Cystocele, lateral N81.12 [facility] 103 Nov, Other specified abnormal OBGYN [facility], uterine and vaginal [place] [id number] bleeding N93.8 and Other specified irregular menstruation N92.5 [facility] 103 Nov, Unspecified urinary OBGYN [facility], incontinence R32 [place] [id number] [facility] 103 Nov, [place]BG[place] [id number] [facility] 103 Oct, Encounter for screening OBGYN [facility], for malignant neoplasm of [place] [id number] cervix Z12.4 ; Unspecified urinary incontinence R32 ; Other specified abnormal uterine and vaginal bleeding N93.8 ; Galactorrhea O92.6 ; Mastodynia N64.4 ; Unspecified lump in the left breast, upper inner quadrant N63.22 and Cystocele, lateral N81.12 [facility] 103 December, [place]BGYN [place], [place] [id number] [facility] 103 December, Dysuria R30.0 ; OBGYN [facility], Unspecified urinary [place] [id number] incontinence R32 ; Cystocele, unspecified N81.10 and Other specified irregular menstruation N92.5 [facility] 103 Feb, OBGYN [place] [id number] [facility] 103 Feb, 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 OBGYN [facility], V72.31 ; SCREEN MAMMOGRAM [place] [id number] NEC V76.12 ; CONTRACEPTIVE MANGMT NOS V25.9 and HEMATURIA NOS 599.70 IMMUNIZATIONS No Known Immunizations SOCIAL HISTORY Never Assessed REASON FOR REFERRAL FUNCTIONAL STATUS PLAN OF CARE VITAL SIGNS MEDICATIONS No Known Medications PROCEDURES No Known procedures RESULTS No Results REASON FOR VISIT breast US Insurance Providers [facility] Member Patient Patient Patient Patient Patient Subscriber Subscriber Subscriber Group Insurance Plan Plan Plan Plan ID Relationship Address Phone Name Date of ID Name Date of No Type Insurance Insurance Insurance Coverage to Subscriber Address Phone Name Dates [place] [phone] [place] self Sonal [id number] Plan for 1600 [facility] [employer] [place] [employer] [place] [employer] [id number] MEDICAL (GENERAL) HISTORY Type Description Date Medical [...]
--- OUTSIDE RECORDS SUMMARY | 2019-10-02 08:23 | XMS REPORT ---
:1970 Author Organization [facility] Address [address] [place] [address] Care Team Providers Name Role Phone Kamilah Duarte Unavailable Unavailable PROBLEMS Type Condition ICD9-CM [id number] Onset Condition SNOMED Code Code Code Dates Status Problem Unspecified lump N63.22 Active 731352001 in the left breast, upper inner quadrant Problem Unspecified R32 Active 685681149 urinary incontinence Problem Galactorrhea O92.6 Active 77414100 Problem Other specified N93.8 Active 208754446 abnormal uterine and vaginal bleeding Problem Other specified N92.5 Active 49695970 irregular menstruation Problem Leiomyoma of D25.9 Active 65939698 uterus, unspecified Problem Cystocele, N81.12 Active 718936531 lateral Problem Other abnormal R92.8 Active 944984515 and inconclusive findings on diagnostic imaging of breast Problem Mastodynia N64.4 Active 43664107 Problem Polyp of corpus N84.0 Active 56061336 uteri Problem Disorder of D72.9 Active 55299455 white blood cells, unspecified Problem Other general R68.89 Active 146244329 symptoms and signs Problem Other ovarian N83.292 Active [id number] cyst, left side ALLERGIES No Information ENCOUNTERS Encounter Location Date Diagnosis [facility] 103 Jul, OBGYN [place] [id number] [facility] 103 Jun, Other ovarian cyst, left OBGYN [facility], side N83.292 ; Leiomyoma [place] [id number] of uterus, unspecified D25.9 ; Other specified irregular menstruation N92.5 and Other abnormal and inconclusive findings on diagnostic imaging of breast R92.8 [facility] 103 Jun, Other ovarian cyst, left OBGYN [facility], side N83.292 [place] [id number] [facility] 103 Jun, [place]BG[place] [id number] [facility] 103 May, [place] [id number] [facility] 103 May, [place]BG[place] [id number] [facility] 103 Mar, [place]BG[place] [id number] [facility] Jan, [place]BG[place] [id number] [facility] 103 Jan, Unspecified urinary OBGYN [facility], incontinence R32 ; Other [place] [id number] specified abnormal uterine and vaginal bleeding N93.8 ; Unspecified lump in the left breast, upper inner quadrant N63.22 and Cystocele, lateral N81.12 [facility] 103 Jan, [place]BGYN [place] [id number] [facility] 103 December, Other specified abnormal OBGYN [facility], uterine and vaginal [place] [id number] bleeding N93.8 ; Polyp of corpus uteri N84.0 and Unspecified lump in the left breast, upper inner quadrant N63.22 [facility] 103 December, Disorder of white blood OBGYN [facility], cells, unspecified D72.9 [place] [id number] and Other general symptoms and signs R68.89 [facility] 103 December, Other specified abnormal OBGYN [facility], uterine and vaginal [place] [id number] bleeding N93.8 ; Galactorrhea O92.6 ; Mastodynia N64.4 and Unspecified lump in the left breast, upper inner quadrant N63.22 [facility] 103 December, [place] [id number] [facility] 103 December, [place]BG[place] [id number] [facility] 103 December, Other specified abnormal OBGYN [facility], uterine and vaginal [place] [id number] bleeding N93.8 ; Galactorrhea O92.6 ; Mastodynia N64.4 and Unspecified lump in the left breast, upper inner quadrant N63.22 [facility] 103 Nov, [place]BGYN [place] [id number] [facility] 103 Nov, Unspecified urinary OBGYN [facility], incontinence R32 ; Other [place] [id number] specified abnormal uterine and vaginal bleeding N93.8 and Cystocele, lateral N81.12 [facility] 103 Nov, Other specified abnormal OBGYN [facility], uterine and vaginal [place] [id number] bleeding N93.8 and Other specified irregular menstruation N92.5 [facility] 103 Nov, Unspecified urinary OBGYN [facility], incontinence R32 [place] [id number] [facility] 103 Nov, [place] [id number] [facility] 103 Oct, Encounter for screening OBGYN [facility], for malignant neoplasm of [place] [id number] cervix Z12.4 ; Unspecified urinary incontinence R32 ; Other specified abnormal uterine and vaginal bleeding N93.8 ; Galactorrhea O92.6 ; Mastodynia N64.4 ; Unspecified lump in the left breast, upper inner quadrant N63.22 and Cystocele, lateral N81.12 [facility] 103 December, [place]BGYN [place] [id number] [facility] 103 December, Dysuria R30.0 ; OBGYN [facility], Unspecified urinary [place] [id number] incontinence R32 ; Cystocele, unspecified N81.10 and Other specified irregular menstruation N92.5 [facility] 103 Feb, [place]BGYN [place], [place] [id number] [facility] 103 Feb, 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 OBGYN [facility], V72.31 ; SCREEN MAMMOGRAM [place] [id number] NEC V76.12 ; CONTRACEPTIVE MANGMT NOS V25.9 and HEMATURIA NOS 599.70 IMMUNIZATIONS No Known Immunizations SOCIAL HISTORY Never Assessed REASON FOR REFERRAL FUNCTIONAL STATUS PLAN OF CARE VITAL SIGNS MEDICATIONS No Known Medications PROCEDURES No Known procedures RESULTS No Results REASON FOR VISIT Noncompliance Insurance Providers [facility] Health Member Patient Patient Patient Patient Patient Subscriber Subscriber Subscriber Group Insurance Plan Plan Plan Plan ID Relationship Address Phone Name Date of ID Name Date of No Type Insurance Insurance Insurance Coverage to Subscriber Address Phone Name Dates [place] [phone] [place] [id number] Plan for 1600 Plan for [facility] Govt [place] [employer] [place] Employees [id number] MEDICAL (GENERAL) HISTORY Type Description Date Medical [...]
--- OUTSIDE RECORDS SUMMARY | 2019-10-02 08:23 | XMS REPORT ---
:1970 Author Name sound, ultra Care Team Providers Name Role Phone sound, ultra Unavailable Unavailable PROBLEMS Type Condition ICD9-CM [id number] Onset Condition SNOMED Code Code Code Dates Status Problem Unspecified lump N63.22 Active 889642472 in the left breast, upper inner quadrant Problem Unspecified R32 Active 551436313 urinary incontinence Problem Galactorrhea O92.6 Active 48853469 Problem Other specified N93.8 Active 419122091 abnormal uterine and vaginal bleeding Problem Other specified N92.5 Active 46193139 irregular menstruation Problem Leiomyoma of D25.9 Active 20216153 uterus, unspecified Problem Cystocele, N81.12 Active 798321904 lateral Problem Other abnormal R92.8 Active 965417964 and inconclusive findings on diagnostic imaging of breast Problem Mastodynia N64.4 Active 47558693 Problem Polyp of corpus N84.0 Active 03992766 uteri Problem Disorder of D72.9 Active 97305720 white blood cells, unspecified Problem Other general R68.89 Active 778653429 symptoms and signs Problem Other ovarian N83.292 Active [id number] cyst, left side ALLERGIES No Information ENCOUNTERS Encounter Location Date Diagnosis [facility] 103 Jul, OBGYN [place], [place] [id number] [facility] 103 Jun, Other ovarian cyst, left OBGYN [facility], side N83.292 ; Leiomyoma [place] [id number] of uterus, unspecified D25.9 ; Other specified irregular menstruation N92.5 and Other abnormal and inconclusive findings on diagnostic imaging of breast R92.8 [facility] 103 Jun, Other ovarian cyst, left OBGYN [facility], side N83.292 [place] [id number] [facility] 103 Jun, [place]BGYN [place], [place] [id number] [facility] 103 May, [place]BG[place] [id number] [facility] 103 May, [place] [id number] [facility] 103 Mar, [place], [place] [id number] [facility] 103 Jan, [place], [place] [id number] [facility] 103 Jan, Unspecified urinary OBGYN [facility], incontinence R32 ; Other [place] [id number] specified abnormal uterine and vaginal bleeding N93.8 ; Unspecified lump in the left breast, upper inner quadrant N63.22 and Cystocele, lateral N81.12 [facility] Jan, [place]BGYN [place] [id number] [facility] 103 December, Other specified abnormal OBGYN [facility], uterine and vaginal [place] [id number] bleeding N93.8 ; Polyp of corpus uteri N84.0 and Unspecified lump in the left breast, upper inner quadrant N63.22 [place] [facility] 103 December, Disorder of white blood OBGYN [facility], cells, unspecified D72.9 [place] [id number] and Other general symptoms and signs R68.89 [place] [facility] 103 December, Other specified abnormal OBGYN [facility], uterine and vaginal [place] [id number] bleeding N93.8 ; Galactorrhea O92.6 ; Mastodynia N64.4 and Unspecified lump in the left breast, upper inner quadrant N63.22 [place] [facility] 103 December, [place], [place] [id number] [facility] 103 December, [place]BG[place], [place] [id number] [facility] 103 December, Other specified abnormal OBGYN [facility], uterine and vaginal [place] [id number] bleeding N93.8 ; Galactorrhea O92.6 ; Mastodynia N64.4 and Unspecified lump in the left breast, upper inner quadrant N63.22 [place] 103 Nov, [place]BG[place] [id number] [facility] 103 Nov, Unspecified urinary OBN [facility], incontinence R32 ; Other [place] [id number] specified abnormal uterine and vaginal bleeding N93.8 and Cystocele, lateral N81.12 [place] [facility] 103 Nov, Other specified abnormal OBGYN [facility], uterine and vaginal [place] [id number] bleeding N93.8 and Other specified irregular menstruation N92.5 [place] 103 Nov, Unspecified urinary OBN [facility], incontinence R32 [place] [id number] [place] [facility] 103 Nov, [place]BG[place] [id number] [facility] 103 Oct, [facility] [place] [id number] cervix Z12.4 ; Unspecified urinary incontinence R32 ; Other specified abnormal uterine and vaginal bleeding N93.8 ; Galactorrhea O92.6 ; Mastodynia N64.4 ; Unspecified lump in the left breast, upper inner quadrant N63.22 and Cystocele, lateral N81.12 [place] [facility] 103 December, OBGYN [place], [place] [id number] [facility] 103 25 Dec, 2015 Dysuria R30.0 ; OBGYN [facility], Unspecified urinary [place] [id number] incontinence R32 ; Cystocele, unspecified N81.10 and Other specified irregular menstruation N92.5 [facility] 103 13 Feb, 2015 OBGYN [place], [place] [id number] [facility] 103 10 Feb, 2015 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 [facility], V72.31 ; SCREEN MAMMOGRAM [place] [id number] NEC V76.12 ; CONTRACEPTIVE MANGMT NOS V25.9 and HEMATURIA NOS 599.70 IMMUNIZATIONS No Known Immunizations SOCIAL HISTORY Never Assessed REASON FOR REFERRAL FUNCTIONAL STATUS PLAN OF CARE VITAL SIGNS MEDICATIONS No Known Medications PROCEDURES Procedure Date Ordered Result Body Site TRANSVAGINAL US, NON-OB Jul 12, 2019 RESULTS Name Result Date Reference Range Ultrasound : Pelvis REASON FOR VISIT Cyst US and follow up Insurance Providers [facility] Health Member Patient Patient Patient Patient Patient Subscriber Subscriber Subscriber Group Insurance Plan Plan Plan Plan ID Relationship Address Phone Name Date of ID Name Date of No Type Insurance Insurance Insurance Coverage to Subscriber Address Phone Name Dates [place] [phone] [place] [id number] Plan for 1600 Plan for [facility] [place] [employer] [place] [id number] MEDICAL (GENERAL) HISTORY Type Description Date Medical [...]
--- OUTSIDE RECORDS SUMMARY | 2019-10-02 08:23 | XMS REPORT ---
:1970 Author Organization [facility] Address [address] [place] [address] Care Team Providers Name Role Phone Kamilah Duarte Unavailable Unavailable PROBLEMS Type Condition ICD9-CM [id number] Onset Condition SNOMED Code Code Code Dates Status Problem Unspecified lump N63.22 Active 419043008 in the left breast, upper inner quadrant Problem Unspecified R32 Active 200612517 urinary incontinence Problem Galactorrhea O92.6 Active 40072493 Problem Other specified N93.8 Active 146197588 abnormal uterine and vaginal bleeding Problem Other specified N92.5 Active 07273582 irregular menstruation Problem Leiomyoma of D25.9 Active 71713736 uterus, unspecified Problem Cystocele, N81.12 Active 407409190 lateral Problem Other abnormal R92.8 Active 932934669 and inconclusive findings on diagnostic imaging of breast Problem Mastodynia N64.4 Active 72753789 Problem Polyp of corpus N84.0 Active 02340609 uteri Problem Disorder of D72.9 Active 31278386 white blood cells, unspecified Problem Other general R68.89 Active 096719153 symptoms and signs Problem Other ovarian N83.292 Active 37989343268436579 cyst, left side ALLERGIES No Information ENCOUNTERS Encounter Location Date Diagnosis [facility] 103 Jul, [place]BG[place], [place] [id number] [facility] 103 Jun, Other ovarian cyst, left OBGYN [facility], side N83.292 ; Leiomyoma [place] [id number] of uterus, unspecified D25.9 ; Other specified irregular menstruation N92.5 and Other abnormal and inconclusive findings on diagnostic imaging of breast R92.8 [facility] 103 Jun, Other ovarian cyst, left OBGYN [facility], side N83.292 [place] [id number] [facility] 103 Jun, [place], [place] [id number] [facility] 103 May, [place] [id number] [facility] 103 May, [place], [place] [id number] [facility] 103 Mar, [place], [place] [id number] [facility] 103 Jan, [place]BG[place], [place] [id number] [facility] 103 Jan, Unspecified urinary OBGYN [facility], incontinence R32 ; Other [place] [id number] specified abnormal uterine and vaginal bleeding N93.8 ; Unspecified lump in the left breast, upper inner quadrant N63.22 and Cystocele, lateral N81.12 [facility] Jan, [place]BG[place], [place] [id number] [facility] 103 December, Other specified abnormal OBGYN [facility], uterine and vaginal [place] [id number] bleeding N93.8 ; Polyp of corpus uteri N84.0 and Unspecified lump in the left breast, upper inner quadrant N63.22 [facility] 103 December, Disorder of white blood OBGYN [facility], cells, unspecified D72.9 [place] [id number] and Other general symptoms and signs R68.89 [facility] 103 December, Other specified abnormal OBGYN [facility], uterine and vaginal [place] [id number] bleeding N93.8 ; Galactorrhea O92.6 ; Mastodynia N64.4 and Unspecified lump in the left breast, upper inner quadrant N63.22 [facility] 103 December, [place] [id number] [facility] 103 December, [place], [place] [id number] [facility] 103 December, Other specified abnormal OBGYN [facility], uterine and vaginal [place] [id number] bleeding N93.8 ; Galactorrhea O92.6 ; Mastodynia N64.4 and Unspecified lump in the left breast, upper inner quadrant N63.22 [facility] 103 Nov, [place], [place] [id number] [facility] 103 Nov, Unspecified urinary OBGYN [facility], incontinence R32 ; Other [place] [id number] specified abnormal uterine and vaginal bleeding N93.8 and Cystocele, lateral N81.12 [facility] 103 Nov, Other specified abnormal OBGYN [facility], uterine and vaginal [place] [id number] bleeding N93.8 and Other specified irregular menstruation N92.5 [facility] 103 Nov, Unspecified urinary OBGYN [facility], incontinence R32 [place] [id number] [facility] 103 Nov, [place], [place] [id number] [facility] 103 Oct, Encounter for screening OBGYN [facility], for malignant neoplasm of [place] [address] cervix Z12.4 ; Unspecified urinary incontinence R32 ; Other specified abnormal uterine and vaginal bleeding N93.8 ; Galactorrhea O92.6 ; Mastodynia N64.4 ; Unspecified lump in the left breast, upper inner quadrant N63.22 and Cystocele, lateral N81.12 [facility] 103 December, [place] [id number] [facility] 103 December, Dysuria R30.0 ; OBGYN [facility], Unspecified urinary [place] [id number] incontinence R32 ; Cystocele, unspecified N81.10 and Other specified irregular menstruation N92.5 [facility] 103 Feb, [place], [place] [id number] [facility] 103 Feb, ROUTINE SURGICAL PATHOLOGIST EXAMINATION OBGYN [facility], V72.31 ; SCREEN MAMMOGRAM [place] [id number] NEC V76.12 ; CONTRACEPTIVE MANGMT NOS V25.9 and HEMATURIA NOS 599.70 IMMUNIZATIONS No Known Immunizations SOCIAL HISTORY Never Assessed REASON FOR REFERRAL FUNCTIONAL STATUS PLAN OF CARE VITAL SIGNS MEDICATIONS No Known Medications PROCEDURES No Known procedures RESULTS No Results REASON FOR VISIT LMTCB 02/15/19; US and breast US also not done Insurance Providers [facility] Health Member Patient Patient Patient Patient Patient Subscriber Subscriber Subscriber Group Insurance Plan Plan Plan Plan ID Relationship Address Phone Name Date of ID Name Date of No Type Insurance Insurance Insurance Coverage to Subscriber Address Phone Name Dates Arpita DOS SANTOS [phone] Arpita [place] [id number] Plan for 1600 [id number] Plan for [place] Gov[employer]. [facility] [place] [place] [id number] MEDICAL (GENERAL) HISTORY Type Description Date Medical [...]
[2019-10-02 08:27] VITALS: BP 134/76
[2019-10-02] MEDS ORDERED: Albuterol/Ipratropium NEB.SOL* Albuterol 2.5 MG/Ipratropium 0.5 MG 3 ML INH ONE (08:38)
--- NOTE | 2019-10-02 08:44 | UC ---
Respiratory Complaint HPI - HPI Summary HPI Summary: Pt presents with c/o cough, sob, wheezing X 1 month. Pt has hx of COPD/asthma. Pt is in the process of quitting smoking and is using Chantix. Has not picked a quit date. - History of Current Complaint Chief Complaint: UCRespiratory Stated Complaint: COUGH SHORTNESS OF BREATH Time Seen by Provider: 10/02/19 08:17 Hx Obtained From: Patient Hx Last Menstrual Period: 2 weeks ago ?: No Onset/Duration: Gradual Onset, Lasting Weeks, Still Present, Worse Since - onset Timing: Constant Severity Initially: Mild Severity Currently: Moderate Pain Intensity: 0 Character: Cough: Nonproductive Aggravating Factors: Allergens, Exertion, Deep Breaths, Recumbent Position Alleviating Factors: Bronchodilator Associated Signs And Symptoms: Positive: Wheezing - Risk Factors Pulmonary Embolism Risk Factors: Smoking Cardiac Risk Factors: Smoking Pseudomonas Risk Factors: Chronic Lung Disease Tuberculosis Risk Factors: Smoking - Allergies/Home Medications Allergies/Adverse Reactions: Allergies Allergy/AdvReac Type Severity Reaction Status Date / Time latex Allergy Intermediate burning Verified 10/02/19 08:25 sensation Home Medications: Home Medications Atorvastatin* [Lipitor 40 MG*] 1 dose PO 1700 10/02/19 [History Confirmed ] Esomeprazole Magnesium [Nexium] 40 mg PO DAILY 10/02/19 [History Confirmed 10/02] Tiotropium [place] [Spiriva Respimat] 1 puff IN BID 10/02/19 [History Confirmed 10/02/19] Varenicline (NF) [Chantix 1 MG TAB (NF)] 1 mg PO BID 10/02/19 [History Confirmed 10/02/19] PMH/Surg Hx/FS Hx/Imm Hx Previously Healthy: Yes Respiratory History: COPD, Asthma Other History Of: Hepatitis C - Surgical History Surgical History: Yes Surgery Procedure, Year, and Place: Tubal Ligation, 1995, [place] - Tonsillectomy, 1969's - Family History Known Family History: Positive: Cardiac Disease, Hypertension, Respiratory Disease - Social History Occupation: Employed Full-time Lives: With Family Alcohol Use: None Substance Use Type: None Smoking Status (MU): Current Some Day Smoker Type: Cigarettes Amount Used/How Often: daily usage Length of Time of Smoking/Using Tobacco: 1/2 - 1 PPD x 35 Years Have You Smoked in the Last Year: Yes When Did the Patient Quit Smoking/Using Tobacco: 08/2018 Household Exposure Type: Cigarettes - Immunization History Most Recent Influenza Vaccination: no Vaccination Up to Date: No Review of Systems All Other Systems Reviewed And Are Negative: Yes Constitutional: Positive: Fatigue Skin: Positive: Negative Eyes: Positive: Negative ENT: Positive: Sinus Congestion Respiratory: Positive: Shortness Of Breath, Cough, Other - wheezing Cardiovascular: Positive: Negative Gastrointestinal: Positive: Negative Genitourinary: Positive: Negative Motor: Positive: Negative Neurovascular: Positive: Negative Musculoskeletal: Positive: Negative Neurological: Positive: Negative Psychological: Positive: Negative Is Patient Immunocompromised?: No Physical Exam Triage Information Reviewed: Yes Appearance: Ill-Appearing Vital Signs: Initial Vital Signs Temp 98.1 F 10/02/19 08:22 Pulse 87 10/02/19 08:22 Resp 18 10/02/19 08:22 BP 134/76 10/02/19 08:22 Pulse Ox 95 10/02/19 08:22 Vital Signs Reviewed: Yes Eye Exam: Normal ENT: Positive: Nasal congestion Dental Exam: Normal Neck exam: Normal Respiratory: Positive: Wheezing Cardiovascular Exam: Normal Musculoskeletal Exam: Normal Neurological Exam: Normal Psychological Exam: Normal Skin Exam: Normal Respiratory Course/Dx - Differential Dx/Diagnosis Differential Diagnosis/HQI/PQRI: Bronchitis, Exacerbation Of COPD Provider Diagnosis: Reactive airway disease with wheezing Discharge ED - Sign-Out/Discharge Documenting (check all that apply): Patient Departure All imaging exams completed and their final reports reviewed: No Studies - Discharge Plan Condition: Stable Disposition: HOME Prescriptions: Albuterol 2.5MG/3ML (0.083%)* [Ventolin 2.5 MG/3 ML NEB.HARJINDER*] 2.5 mg INH Q6H #1 box Benzonatate CAP* [Tessalon 100 MG CAP*] 100 - 200 mg PO Q8H PRN #30 cap PRN Reason: Cough Codeine Phosphate/Guaifenesin [Guaifen-Codeine 100-10 mg/5 ml] 5 ml PO BEDTIME PRN #20 ml MDD 5 ml PRN Reason: Cough predniSONE 20 mg TAB [Deltasone 20 MG TAB*] 60 mg PO DAILY #12 tab Patient Education Materials: Reactive Airways Disease (ED), Wheezing (ED) Referrals: Ana Alonso PA [Primary Care Provider] - If Needed - Billing Disposition and Condition Condition: STABLE Disposition: Home
== END 2019-10-02 09:13 | disposition home or self-care (01) ==
LOC: UCCORT 08:05
DX: J44.9 Chronic obstructive pulmonary disease, unspecified (principal); R06.2 Wheezing; R09.81 Nasal congestion; Z91.040 Latex allergy status
CPT/HCPCS: 99212; A9270-GY; G0463

== ENCOUNTER 2019-10-15 20:50 | Emergency (ER) | payer BC ==
[2019-10-15 21:04] VITALS: BP 122/81
--- NOTE | 2019-10-15 21:07 | UC ---
FLU HPI - HPI Summary HPI Summary: 48-year-old with flulike symptoms for the past 2 days. She's had diarrhea 2 today. She did get a flu shot in the fall. She is an occasional smoker. - History of Current Complaint Chief Complaint: UCGeneralIllness Stated Complaint: FEVER, DIARRHEA, BODY ACHES Time Seen by Provider: 10/15/19 21:07 Hx Obtained From: Patient Hx Last Menstrual Period: 09/29/19 ?: No Onset/Duration: Gradual Onset Severity Currently: Mild Severity Initially: Mild Pain Intensity: 5 Associated Signs & Symptoms: Positive: Fever, Myalgia, Cough, Nasal Congestion Related Hx: Possible Flu/Infectious Exposure - Other family members have recently had the flu. - Allergy/Home Medications Allergies/Adverse Reactions: Allergies Allergy/AdvReac Type Severity Reaction Status Date / Time latex Allergy Intermediate burning Verified 10/15/19 20:58 sensation Home Medications: Home Medications Albuterol HFA INHALER* [Ventolin HFA Inhaler*] 1 - 2 puff INH Q4H PRN 03/19/18 [ History Confirmed 10/15/19] Albuterol 2.5MG/3ML (0.083%)* [Ventolin 2.5 MG/3 ML NEB.HARJINDER*] 2.5 mg INH Q6H #1 box 10/02/19 [Rx Confirmed 10/15/19] Esomeprazole Magnesium [Nexium] 40 mg PO DAILY 10/02/19 [History Confirmed 10/15] Tiotropium [place] [Spiriva Respimat] 1 puff IN BID 10/02/19 [History Confirmed 10/15/19] Varenicline (NF) [Chantix 1 MG TAB (NF)] 1 mg PO BID 10/02/19 [History Confirmed 10/15/19] PMH/Surg Hx/FS Hx/Imm Hx Previously Healthy: Yes Respiratory History: Asthma Other History Of: Hepatitis C - Surgical History Surgical History: Yes Surgery Procedure, Year, and Place: Tubal Ligation, 1995, [place] - Tonsillectomy, 1969's - Family History Known Family History: Positive: Cardiac Disease, Hypertension, Respiratory Disease - Social History Lives: With Family Alcohol Use: None Substance Use Type: None Smoking Status (MU): Current Some Day Smoker Type: Cigarettes Amount Used/How Often: daily usage Length of Time of Smoking/Using Tobacco: 08/26 - 1 PPD x 35 Years Have You Smoked in the Last Year: Yes When Did the Patient Quit Smoking/Using Tobacco: 08/2018 Household Exposure Type: Cigarettes - Immunization History Most Recent Influenza Vaccination: no Vaccination Up to Date: No Review of Systems All Other Systems Reviewed And Are Negative: Yes Constitutional: Positive: Fever, Chills ENT: Positive: Nasal Discharge, Sinus Congestion Respiratory: Positive: Cough Musculoskeletal: Positive: Myalgia Neurological/Mental Status: Positive: Headache Is Patient Immunocompromised?: No Physical Exam Triage Information Reviewed: Yes Appearance: Well-Appearing, No Pain Distress, Well-Nourished Vital Signs: Initial Vital Signs Temp 97.7 F 10/15/19 20:58 Pulse 86 10/15/19 20:58 Resp 16 10/15/19 20:58 BP 122/81 10/15/19 20:58 Pulse Ox 97 10/15/19 20:58 Vital Signs Reviewed: Yes Eyes: Positive: Conjunctiva Clear ENT: Positive: Pharynx normal, Nasal drainage - Clear nasal coryza, TMs normal, Uvula midline Neck: Positive: Supple, Nontender, No Lymphadenopathy Respiratory: Positive: No respiratory distress, No accessory muscle use, Wheezing - Very mild wheeze with forced expiration Cardiovascular: Positive: RRR, No Murmur, Pulses Normal, Brisk Capillary Refill Musculoskeletal Exam: Normal Neurological Exam: Normal Psychological Exam: Normal Skin Exam: Normal Flu Course/Dx - Course Course Of Treatment: Rapid flu test: Negative Patient is comfortable here and in no distress. - Differential Dx/Diagnosis Provider Diagnosis: Viral illness Discharge ED - Sign-Out/Discharge Documenting (check all that apply): Patient Departure All imaging exams completed and their final reports reviewed: No Studies - Discharge Plan Condition: Good Disposition: HOME Patient Education Materials: Viral Syndrome (ED) Forms: *Work Release Referrals: [facility] [Outside] No Primary Care Phys,NOPCP [Primary Care Provider] - Additional Instructions: Increase fluids, rest, follow-up with your primary care provider in 3 or 4 days if no improvement. - Billing Disposition and Condition Condition: GOOD Disposition: Home - Attestation Statements Provider Attestation: Per institutional requirements, I have reviewed the chart, however, I was not consulted specifically or made aware of this patient by the midlevel provider. I did not personally evaluate, interact with, or disposition this patient. EK
[2019-10-15 21:22] LABS: Influenza A Molecular Negative (Negative); Influenza B Molecular Negative (Negative)
== END 2019-10-15 21:31 | disposition home or self-care (01) ==
LOC: UCCORT 20:50
DX: B34.9 Viral infection, unspecified (principal); R19.7 Diarrhea, unspecified; J45.909 Unspecified asthma, uncomplicated; R09.81 Nasal congestion; R05 Cough; M79.10 Myalgia, unspecified site; R51 Headache; R50.9 Fever, unspecified; F17.210 Nicotine dependence, cigarettes, uncomplicated; Z91.040 Latex allergy status; Z79.899 Other long term (current) drug therapy
CPT/HCPCS: 99211; G0463